=== PATIENT | male | born 1970 | race Two or more races ===

== ENCOUNTER 2016-06-16 21:31 | Inpatient (IN) | payer OTHER ==
[~2016-06-16] VITALS: Ht 157.5 cm; Wt 72.6 kg
[2016-06-16] MEDS: VANCOMYCIN 1.5 GM in IV NORMAL SALINE 500ML BAG 500 ML IV ONE (00:07)
[~2016-06-16 21:31] MED LIST: ASPI81TA2 PO; ATOR40TA PO; CARV3.12 PO; CEPH500C PO; CLOP75TA PO; FURO-68 PO; GLIM4TAB2 PO; HYDR-971 PO; INSU100I13 SQ; INSU100I17 SQ; INSU100I27 SQ; INSU100V13 SQ; Ipratropium/Albuterol Sulfate NEB; LEVO500T8 PO; LOSA100T6 PO; LOSA25TA PO; METF10002 PO; METO25TA9 PO; ONDA8TAB12 PO; OXYC-323 PO; PANT40TA3 PO; POTA20TA4 PO; SENN-37 PO; SIMV40TA3 PO; SPIR25TA PO; TICA90TA PO
[2016-06-16] MEDS ORDERED: PIP/TAZO PER PHARMACY MC PRN (23:00)
[2016-06-16] MEDS ORDERED: IV NORMAL SALINE 1000ML BAG 1,000 ML IV SCH (23:00)
[2016-06-16 23:14] LABS: BASO # 0.1 x10^3/uL (0.0-0.2); BASO % 0 % (0-3); EOS % 0 % (0-3); HEMATOCRIT 40.5 % (39.0-53.0); HEMOGLOBIN 13.3 g/dL (13.0-17.5); LYMPH % 5 % (24-48); MEAN CORPUSCULAR HEMOGLOBIN 27 pg (25-35); MEAN CORPUSCULAR HGB CONC 33 g/dL (31-37); MEAN CORPUSCULAR VOLUME 81 fL (79-100); MONO % 8 % (0-9); NEUT % 87 % (31-73); PLATELET COUNT 187 x10^3/uL (140-400); RED BLOOD COUNT 5.01 x10^6/uL (4.30-5.70); RED CELL DISTRIBUTION WIDTH 14.6 % (11.5-14.5); WHITE BLOOD COUNT 21.7 x10^3/uL (4.0-11.0)
[2016-06-16] MEDS: PIPERACILLIN/TAZOBACTAM 3.375 GM in IV NORMAL SALINE 50ML 50 ML IV SCH (23:22)
[2016-06-16 23:30] LABS: CALCIUM 8.5 mg/dL (8.5-10.1); CREATININE 1.7 mg/dL (0.7-1.3); GFR 43.6; POTASSIUM 4.7 mmol/L (3.5-5.1)
[2016-06-16 23:33] LABS: INR 1.5 (0.8-1.1); PROTHROMBIN TIME PATIENT 16.9 SEC (11.7-14.0)
[2016-06-16 23:36] LABS: ALBUMIN 2.1 g/dL (3.4-5.0); ALBUMIN/GLOBULIN RATIO 0.4 (1.0-1.7); TOTAL BILIRUBIN 1.5 mg/dL (0.2-1.0)
--- NOTE | 2016-06-16 23:48 | PHYS DOC ---
Past Medical History Past Medical History: CAD, Cancer, Diabetes-Type II, High Cholesterol, Hypertension, Other Additional Past Medical Histor: NEUROPATHY Past Surgical History: Coronary Bypass Surgery Additional Past Surgical Histo: testicularCA w/ removeofx1 testical,CABGx3, cardiacstents x 5,part amp toe Alcohol Use: None Drug Use: None Adult General Chief Complaint Chief Complaint: SKIN PROBLEM HPI HPI Patient is a 45 year old male who presents with complaint of left foot swelling. Patient states that he noticed the swelling earlier today as he felt tightness in the affected foot. Patient states that he has history of diabetic neuropathy and does not have normal feeling in his feet. Patient has history of type 2 diabetes mellitus and history of left great toe amputation which was done in January 2016. Patient was seen by his daughter who noticed that the patient had significant swelling to the foot. When she looked at the patient's foot, she stated that she saw wound to the second toe and is concerned that he is forming gangrene. Patient has had associated lightheadedness and generalized weakness. Patient denies pain. Patient's daughter brought the patient to the emergency department for fear of infection. Review of Systems Review of Systems Constitutional: Lightheadedness, chills [] Eyes: Denies change in visual acuity, redness, or eye pain [] HENT: Denies nasal congestion or sore throat [] Respiratory: Denies cough or shortness of breath [] Cardiovascular: No additional information not addressed in HPI [] GI: Denies abdominal pain, nausea, vomiting, bloody stools or diarrhea [] : Denies dysuria or hematuria [] Musculoskeletal: Left foot swelling and pain [] Integument: Denies rash or skin lesions [] Neurologic: Denies headache, focal weakness or sensory changes [] Endocrine: Denies polyuria or polydipsia [] Current Medications Current Medications Current Medications Medications (Trade) Dose Ordered Sig/Yaneli Start Time Stop Time Status Last Admin Dose Admin Piperacillin Sod/ Tazobactam Sod 1 each 1 each PRN DAILY PRN 06/16/16 23:00 Piperacillin Sod/ Tazobactam Sod/ Sodium Chloride (Zosyn/Iv Sodium Chloride 0.9% 50ml) 50 ml @ 100 mls/hr Q6HRS 06/16/16 23:00 06/16/16 23:22 100 MLS/HR Sodium Chloride (Iv Sodium Chloride 0.9% 1000ml Bag) 1,920 ml @ 480 mls/hr Q4H 06/16/16 23:00 06/17/16 02:59 DC 06/16/16 23:21 480 MLS/HR Vancomycin HCl (Vanco Per Pharmacy) 1 each PRN DAILY PRN 06/16/16 23:00 06/17/16 02:11 1 EACH Vancomycin HCl 1.5 gm/Sodium Chloride 500 ml @ 250 mls/hr 1X ONCE 06/16/16 23:30 06/17/16 01:29 DC 06/17/16 00:10 250 MLS/HR Allergies Allergies Allergies Coded Allergies Type Severity Reaction Last Updated Verified No Known Drug Allergies 10/06/15 No Physical Exam Physical Exam Constitutional: Alert, afebrile, appears ill. [] HENT: Normocephalic, atraumatic, bilateral external ears normal, oropharynx moist, no oral exudates, nose normal. [] Eyes: PERRLA, EOMI, conjunctiva normal, no discharge. [] Neck: Normal range of motion, no tenderness, supple, no stridor. [] Cardiovascular: Tachycardia, regular rhythm, no murmur [] Lungs & Thorax: Bilateral breath sounds clear to auscultation [] Abdomen: Bowel sounds normal, soft, no tenderness, no masses, no pulsatile masses. [] Skin: Warm, dry, erythema present in the left foot, no rash. [] Back: No tenderness, no CVA tenderness. [] Extremities: Moderate to severe soft tissue swelling of left foot with gangrenous changes involving the entire second toe, erythema and swelling extending to the left ankle skin sloughing over second toe. [] Neurologic: Alert and oriented X 3, normal motor function, normal sensory function, no focal deficits noted. [] Current Patient Data Vital Signs Vital Signs Date Time Temp Pulse Resp B/P Pulse Ox O2 Delivery O2 Flow Rate FiO2 06/16/16 23:15 116 17 104/80 95 Room Air 06/16/16 22:30 99.8 99.8 Lab Values Laboratory Tests Test 06/16/16 23:05 White Blood Count 21.7x10^3/uL (4.0-11.0) H Red Blood Count 5.01x10^6/uL (4.30-5.70) Hemoglobin 13.3g/dL (13.0-17.5) Hematocrit 40.5% (39.0-53.0) Mean Corpuscular Volume 81fL (79-100) Mean Corpuscular Hemoglobin 27pg (25-35) Mean Corpuscular Hemoglobin Concent 33g/dL (31-37) Red Cell Distribution Width 14.6% (11.5-14.5) H Platelet Count 187x10^3/uL (140-400) Neutrophils (%) (Auto) 87% (31-73) H Lymphocytes (%) (Auto) 5% (24-48) L Monocytes (%) (Auto) 8% (0-9) Eosinophils (%) (Auto) 0% (0-3) Basophils (%) (Auto) 0% (0-3) Neutrophils # (Auto) 18.8x10^3uL (1.8-7.7) H Lymphocytes # (Auto) 1.0x10^3/uL (1.0-4.8) Monocytes # (Auto) 1.7x10^3/uL (0.0-1.1) H Eosinophils # (Auto) 0.0x10^3/uL (0.0-0.7) Basophils # (Auto) 0.1x10^3/uL (0.0-0.2) Segmented Neutrophils % 77% (35-66) H Band Neutrophils % 13% (0-9) H Lymphocytes % 4% (24-48) L Atypical Lymphocytes % (Manual) 1% (0-0) H Monocytes % 5% (0-10) Dohle Bodies Present Platelet Estimate Adequate (ADEQUATE) Prothrombin Time 16.9SEC (11.7-14.0) H Prothrombin Time INR 1.5 (0.8-1.1) H PTT 37SEC (24-38) Sodium Level 126mmol/L (136-145) L Potassium Level 4.7mmol/L (3.5-5.1) Chloride Level 89mmol/L (98-107) L Carbon Dioxide Level 26mmol/L (21-32) Anion Gap 11 (6-14) Blood Urea Nitrogen 22mg/dL (8-26) Creatinine 1.7mg/dL (0.7-1.3) H Estimated GFR (Cockcroft-Gault) 43.6 BUN/Creatinine Ratio 13 (6-20) Glucose Level 420mg/dL (70-99) H Lactic Acid Level 2.9mmol/L (0.4-2.0) H Calcium Level 8.5mg/dL (8.5-10.1) Total Bilirubin 1.5mg/dL (0.2-1.0) H Aspartate Amino Transferase (AST) 27U/L (15-37) Alanine Aminotransferase (ALT) 20U/L (16-63) Alkaline Phosphatase 134U/L (46-116) H Total Protein 7.0g/dL (6.4-8.2) Albumin 2.1g/dL (3.4-5.0) L Albumin/Globulin Ratio 0.4 (1.0-1.7) L Procalcitonin 3.18ng/mL (0.00-0.10) H Laboratory Tests 06/16/16 23:05 Laboratory Tests 06/16/16 23:05 EKG EKG Interpreted by me: Heart rate 120, sinus tachycardia, normal intervals, leftward axis, no acute ST/T-wave abnormalities present [] Radiology/Procedures Radiology/Procedures 3 view left foot x-ray interpreted by me: Severe soft tissue swelling of left second toe, subcutaneous gas formation extending past mid foot to the ankle, no fracture [] Course & Med Decision Making Course & Med Decision Making Pertinent Labs and Imaging studies reviewed. (See chart for details) Patient was started on IV Zosyn and vancomycin after lactic acid and blood cultures were collected. The patient's x-rays show signs of severe infection due to suspected necrotizing fasciitis. At 0001, I spoke with Dr. Hairston of orthopedic surgery and informed him of the patient's current status and presence of suspected necrotizing fasciitis. He agreed with initial measures and stated that he would follow with patient in hospital for likely surgical intervention later this morning. I spoke with Dr. Shaver who accepted care of patient in hospital. Patient admitted to ICU and continued on severe sepsis protocol. Dragon Disclaimer Dragon Disclaimer This electronic medical record was generated, in whole or in part, using a voice recognition dictation system. Departure Departure Impression: Primary Impression: Severe sepsis Additional Impressions: Gas gangrene of foot Diabetes mellitus Severe protein-calorie malnutrition Renal insufficiency Disposition: ADMITTED INPATIENT Admitting Physician: Moussa, Halla Condition: GUARDED Referrals: JONE SHAVER MD (PCP) Problem Qualifiers Additional Impressions: Diabetes mellitus Diabetes mellitus type: type 2 Diabetes mellitus complication status: with hyperglycemia Diabetes mellitus buttermaker continuous churn insulin use: unspecified buttermaker continuous churn insulin use status Qualified Code: E11.65 - Type 2 diabetes mellitus with hyperglycemia LEATHA MATAMOROS MD Jun 16, 2016 23:48
[2016-06-16 23:49] LABS: PLT ESTIMATE ADEQUATE (ADEQUATE)
[2016-06-16 23:58] LABS: PROCALCITONIN 3.18 ng/mL (0.00-0.10)
[2016-06-17] VITALS (26 sets, daily range): BP systolic 79–145; BP diastolic 52–106
[2016-06-17] MEDS ORDERED: ONDANSETRON PF 4 MG/2 ML VIAL. IV PRN
[2016-06-17] MEDS ORDERED: ACETAMINOPHEN 325 MG TABLET. PO PRN
[2016-06-17] MEDS ORDERED: FENTANYL PF 100 MCG/2 ML VIAL. IV PRN
[2016-06-17] MEDS ORDERED: IV NORMAL SALINE 1000ML BAG 1,000 ML IV SCH
[2016-06-17] MEDS: VANCOMYCIN 1.5 GM in IV NORMAL SALINE 500ML BAG 500 ML IV ONE (00:10)
[2016-06-17] MEDS ORDERED: DEXTROSE 50% 25 GM / 50ML DISP.SYRIN. IV PRN (00:15)
--- NOTE | 2016-06-17 00:47 | ACF ---
Admission Forms Criteria SEVERE SEPSIS Clinical Indications for Admission to Inpatient Care (Place 'X' for any and all applicable criteria): Hospital admission is needed for appropriate care of the patient because of ANY ONE of the following: [X]I. Hemodynamic instability indicated by ANY ONE of the following(1)(2)(3)( 4)(5): []a. Vital sign abnormality not readily corrected by appropriate treatment within 12 to 24 hours indicated by ANY ONE of the following: []i) Tachycardia that persists despite appropriate treatment []ii) Hypotension that persists despite appropriate treatment []iii) Orthostatic vital sign changes that persist despite appropriate treatment [X]b. Vital sign abnormality that is severe indicated by ANY ONE of the following: [X]i. Inadequate perfusion indicated by ANY ONE of the following: [X]1) Lactic acidosis (greater than 2 mmol/L) []2) New abnormal capillary refill (greater than 3 seconds) []3) Reduced urine output []4) New altered mental status []5) Myocardial Ischemia []ii. Mean arterial pressure [A] less than 60 mm Hg []iii. Mean arterial pressure[A] less than 70 mm Hg after 30 minutes of appropriate treatment (eg, fluid resuscitation) []iv. Sustained heart rate greater than 120 beats per minute in adult []v. IV inotropic or vasopressor medication required to maintain adequate blood pressure or perfusion []II. Systemic or infectious condition causing severe symptoms or findings not responsive to emergency or observation care treatment (as appropriate) indicated by ANY ONE of the following: []a. Cardiac arrhythmias of immediate concern(1)(2)(3) []b. Severe endocrine disorder (eg, thyrotoxicosis, adrenal insufficiency)(4)(5) []c. Seizures (eg, new or recurrent)(6) []d. New-onset end organ failure or dysfunction as indicated by ANY ONE of the following: []i. Acute unexplained hypoxemia (eg, not from lung infection or chronic disease)(7)(8)(9) []ii. Acute renal failure as indicated by new onset of ANY ONE of the following(10)(11)(12)(13)(14): []1) 3-fold rise in serum creatinine from baseline []2) Serum creatinine greater than 4 mg/dL (354 micromoles/L) with acute rise greater than 0.5 mg/dL (44.2 micromoles/L) []3) Reduction of more than 75% in estimated glomerular filtration rate from baseline. []4) Estimated glomerular filtration rate less than 35 mL/min/1.73m2 ( 0.59 mL/sec/1.73m2) in child younger than 18 years. []5) Cessation of urine output indicated by ALL of the following: []A. Adequate volume status []B. Inadequate urine output as indicated by ANY ONE of the following: []a. Urine output less than 0.3 mL/kg/hr for 24 hours []b. Anuria (urine output less than 0.1 mL/kg/hr) for 12 hours []iii. Acute mental status changes(15) []iv. Acute hepatic failure (eg, plasma bilirubin greater than 4 mg/ dL (68 micromoles/L), new INR greater than 2.0)(16)(17) []e. Unmanageable nausea and vomiting(18) []f. New-onset or uncontrolled central diabetes insipidus(19)(20) []g. Clinically significant dehydration(18)(21) []h. Hypoglycemia(22) []i. Acidosis (pH less than 7.35) or alkalosis (pH greater than 7.45)( 22)(23) []j. Toxic drug level that indicates need for specific monitoring or treatment(24)(25) []k. Severe electrolyte abnormalities indicated by ALL of the following( 1)(2)(3): []i. Electrolytes and associated findings are not as expected for patient baseline or acceptable treatment effects. []ii. Severe abnormalities indicated by ANY ONE of the following: []1) Sodium less than 130 mEq/L (mmol/L) (new) []2) Sodium less than 135 mEq/L (mmol/L) with ANY ONE of the following: []A. Uncorrectable (to near normal or chronic baseline) after trial of outpatient and emergency treatment []B. Altered mental status []C. Seizures []D. Severe medical etiology requiring inpatient management (eg , heart failure, hypovolemia) []3) Sodium greater than 155 mEq/L (mmol/L) []4) Sodium greater than 150 mEq/L (mmol/L) with ANY ONE of the following: []A. Uncorrectable (to near normal or chronic baseline) with outpatient and emergency treatment []B. Altered mental status []C. Seizures []D. Severe medical etiology (eg, hypovolemia, diabetes insipidus) []5) Potassium less than 2.5 mEq/L (mmol/L) despite outpatient and emergency treatment []6) Potassium less than 3 mEq/L (mmol/L) with ANY ONE of the following : []A. Weakness []B. Cardiac abnormality (eg, arrhythmia, conduction disturbance ) []C. Cardiac ischemia []D. Ileus []E. Ongoing medical cause requiring inpatient management (eg, acute renal wasting or SIADH) []F. Other severe symptoms []7) Potassium greater than 6.5 mEq/L (mmol/L) []8) Potassium greater than 5 mEq/L (mmol/L) with ANY ONE of the following: []A. Uncorrectable (to near normal or chronic baseline) with outpatient and emergency treatment []B. Severe ECG findings[A] []C. Acute worsening of renal failure (creatinine greater than 2.5 mg/dL (221 micromoles/L) or significant elevation for age and size) []D. Severe weakness []E. Severe medical etiology (eg, hemolysis, infection, drug overdose) []9) Calcium less than 7 mg/dL (1.75 mmol/L) despite outpatient and emergency treatment(5) []10) Calcium less than 8 mg/dL (2 mmol/L) with significant symptoms or findings (eg, altered mental status, muscle spasms, seizures, breathing difficulty, cardiac abnormality (eg, arrhythmia or conduction disturbance))(5) []11) Calcium greater than 14 mg/dL (3.5 mmol/L)(5) []12) Calcium greater than 12 mg/dL (3 mmol/L) with ANY ONE of the following(5): []A. Uncorrectable (to near normal or chronic baseline) with outpatient and emergency treatment []B. Significant dehydration or hypovolemia as indicated by ALL of the following(3)(6)(7): []a. Not resolved with initial treatments []b. Clinically significant dehydration as indicated by ANY ONE of the following: [](1) Vomiting refractory to outpatient treatment (ie, precluding oral rehydration) [](2) Inability to drink [](3) Hypernatremia or other electrolyte abnormality unable to be corrected with outpatient and emergency treatment [](4) Failure to remain hydrated with outpatient therapy [](5) Reduced urine output [](6) Hypotension [](7) Serious cause for dehydration requiring acute hospitalization ( eg, bowel obstruction, increased intracranial pressure, infectious cause) [](8) Child with ANY ONE of the following(8): [](i) Severe abdominal tenderness [](ii) Adequate care not available at home [](iii) Severe dehydration (greater than 9% loss of body weight) []C. Significant symptoms or findings (eg, altered mental status , cardiac abnormality (eg, arrhythmia, conduction disturbance), malignant etiology requiring inpatient treatment) []13) Phosphorus less than 1 mg/dL (0.32 mmol/L) []14) Phosphorus less than 1.5 mg/dL (0.48 mmol/L) with ANY ONE of the following: []A. Patient unresponsive to outpatient and emergency treatment []B. Significant symptoms or findings (eg, weakness, altered mental status, breathing difficulty, seizures, rhabdomyolysis) []15) Phosphorus greater than 10 mg/dL (3.2 mmol/L) []16) Phosphorus greater than 4.5 mg/dL (1.45 mmol/L) (new) with ANY ONE of the following: []A. Severe medical etiology (eg, crush injury, acute renal failure) []B. Associated hypocalcemia with significant findings (eg, neurologic symptoms, altered mental status, muscle spasms, seizures, breathing difficulty, cardiac abnormality (eg, arrhythmia, conduction disturbance)) []16) Magnesium less than 1 mg/dL (0.41 mmol/L) []17) Magnesium less than 1.5 mg/dL (0.62 mmol/L) with ANY ONE of the following: []A. Patient unresponsive to outpatient and emergency treatment []B. Associated hypocalcemia with significant findings (eg, altered mental status, muscle spasms, seizures, breathing difficulty, cardiac abnormality (eg, arrhythmia, conduction disturbance)) []C. Associated hypokalemia (potassium less than 3 mEq/L (mmol/L )) with risk of arrhythmia []18) Magnesium greater than 4 mEq/L (2 mmol/L) []19) Magnesium greater than 2.5 mEq/L (1.25 mmol/L) with significant symptoms or findings (eg, weakness, altered mental status, cardiac abnormality (eg, arrhythmia, conduction disturbance), breathing difficulty, severe medical etiology (eg, renal failure, hypovolemia)) []20) Uric acid greater than 20 mg/dL (1190 micromoles/L)(9) []21) Uric acid greater than 8 mg/dL (476 micromoles/L) with significant symptoms or findings of tumor lysis syndrome (eg, creatinine greater than 1.5 times upper limit of normal, cardiac abnormality (eg , arrhythmia, conduction disturbance), seizure)(9) []III. High fever or other high-risk infection situation as indicated by ANY ONE of the following(26)(27)(28): []a. Outpatient and observation care antimicrobial treatment unavailable, not effective, or not appropriate []b. Documented bacteremia []c. Temperature greater than 104.9 degrees F (40.5 degrees C) (oral) []d. Temperature greater than 103.1 degrees F (39.5 degrees C) (oral) or less than 96.8 degrees F (36 degrees C) (rectal) that does not respond to emergency treatment and observation care []IV. High-risk febrile neutropenia[A] as indicated by ANY ONE of the following(29)(30)(31)(32): []a. Profound neutropenia[B] anticipated to extend for more than 7 days []b. Hemodynamic instability []c. Hypoxemia []d. Tachypnea []e. Altered mental status []f. New-onset abdominal pain []g. New-onset vomiting or diarrhea []h. Oral or gastrointestinal mucositis that interferes with swallowing or causes severe diarrhea []i. Focal infection (eg, cellulitis, pneumonia, central line or catheter infection, perirectal abscess) []j. Renal insufficiency (eg, GFR of less than 30 mL/min/1.73m2 (0.5 mL/sec /1.73m2)). []k. Severe liver dysfunction (transaminase levels greater than 5 times normal) []l. Platelet count less than 50,000/mm3 (50 x109/L)(33) []m. Leukemia or lymphoma induction therapy []n. Leukemia not in complete remission or with evidence of disease progression []o. Bone marrow transplant patient []p. Alemtuzumab being used for therapy []q. [employer] Association for Supportive Care in Cancer (MASCC) Risk Index score of less than 21[C](33)(35). []V. Isolation required (eg, tuberculosis that requires isolation, Ebola infection)[D](36)(37)(38)(39)(40) []. Gangrene that requires treatment beyond emergency or observation level care(41)(42) []VII. Antitoxin administration and ongoing observation required (eg, tetanus, botulism)(43)(44) []. Suspected infection with rapid progression or severe symptoms as indicated by ANY ONE of the following(45): []a. Streptococcal or staphylococcal toxic shock(46) []b. Diphtheria(47) []c. Hantavirus(48) []d. Severe acute respiratory syndrome(8)(49) []e. Anthrax(50) []f. Ebola[D](36)(37)(38) []g. Necrotizing soft tissue infection(41)(42) []h. Plague(50) []i. Other suspected infection that requires care beyond emergency or observation level care []VII. Severe adverse drug or systemic toxin reaction as indicated by ANY ONE of the following(24): []a. Serotonin syndrome(51)(52) []b. Neuroleptic malignant syndrome(51)(52) []c. Cholinergic syndrome with severe symptoms (eg, bronchorrhea, weakness , mental status changes, seizures)(53) []d. Anticholinergic syndrome []e. Sympathetic syndrome with severe symptoms (eg, seizures, mental status changes, cardiac dysrhythmias) []f. Other severe adverse drug or systemic toxin reaction that remains after emergency or observation level care (as appropriate) []VIII. Allergic reaction with severe symptoms (not responsive to emergency or observation care treatment as appropriate), including ANY ONE of the following(54): []a. Airway edema (pharyngeal, epiglottic, or laryngeal edema) []b. Stridor []c. Respiratory failure []d. Bronchospasm []e. Hypotension []IX. Environmental emergency (not responsive to emergency or observation care treatment as appropriate) as indicated by ANY ONE of the following(55)(56): []a. Hyperthermia []b. Heat stroke []c. Heat exhaustion []d. Hypothermia (temperature less than 95 degrees F (35 degrees C) rectal) (57) []e. Electrocution(58) []X. Complications of transplanted organ (ie, not covered elsewhere)[E] indicated by ANY ONE of the following(59): []a. Acute graft rejection (or graft vs. host disease)[F] requiring inpatient management (eg, intravenous immunosuppression)(60)(61)(62)( 63) []b. Acute failure of transplanted organ necessitating inpatient care (eg, cannot be managed in other setting) []c. Infection requiring inpatient management (eg, Hemodynamic instability, need for intravenous antimicrobial treatment)(64)(65) []d. Other complication of transplanted organ requiring inpatient management []XI. Systemic or Infectious Condition condition, symptom, or finding for which emergency and observation care have failed or are not considered appropriate. See General Criteria: Observation Care, General Admission Criteria or Pediatric General Admission Criteria guideline as appropriate. (Contents from SEVERE SEPSIS and SYSTEMIC OR INFECTIOUS CONDITION clinical indications for admission to inpatient care have been integrated in this form) The original [facility] content created by [facility] has been revised. The portions of the content which have been revised are identified through the use of italic text or in bold and [facility] has neither reviewed nor approved the modified material. All other unmodified content is copyright [facility]. Please see references footnoted in the original [facility] edition 2016 Admission Criteria Met?: Yes ALTA INGRAM Jun 17, 2016 00:47
[2016-06-17] MEDS ORDERED: NOREPINEPHRINE VIAL 8 MG in IV NORMAL SALINE 250ML 250 ML IV PRN (01:30)
[2016-06-17] MEDS ORDERED: INSULIN ASPART 300 UNITS/3 ML INSULN.PEN SQ ONE (02:00)
[2016-06-17] MEDS: VANCOMYCIN PER PHARMACY MC PRN ×2 (02:11→09:21)
[2016-06-17 03:36] LABS: CALCIUM 7.7 mg/dL (8.5-10.1); CREATININE 1.7 mg/dL (0.7-1.3); GFR 43.6; POTASSIUM 3.8 mmol/L (3.5-5.1)
[2016-06-17 03:54] LABS: BASO # 0.1 x10^3/uL (0.0-0.2); BASO % 0 % (0-3); EOS % 0 % (0-3); HEMATOCRIT 36.5 % (39.0-53.0); HEMOGLOBIN 11.7 g/dL (13.0-17.5); LYMPH # 1.5 x10^3/uL (1.0-4.8); LYMPH % 8 % (24-48); MEAN CORPUSCULAR HEMOGLOBIN 26 pg (25-35); MEAN CORPUSCULAR HGB CONC 32 g/dL (31-37); MEAN CORPUSCULAR VOLUME 81 fL (79-100); MONO % 10 % (0-9); NEUT % 82 % (31-73); PLATELET COUNT 161 x10^3/uL (140-400); RED CELL DISTRIBUTION WIDTH 14.4 % (11.5-14.5); WHITE BLOOD COUNT 18.8 x10^3/uL (4.0-11.0)
[2016-06-17] MEDS: PIPERACILLIN/TAZOBACTAM 3.375 GM in IV NORMAL SALINE 50ML 50 ML IV SCH ×3 (05:52→17:50)
--- NOTE | 2016-06-17 06:32 | EKG ---
[facility] [address] [place] [address] Test Date: 2016-06-16 Test Time: 22:38:52 Pat Name: TAMERA MCGOWAN Department: Room: 108 1 Gender: M Bilingual Interpreter: : 1970 Requested By: LEATHA MATAMOROS Order Number: [id number] Reading MD: Eboni Diehl Measurements Intervals [place] Rate: 120 P: 38 GA: 144 QRS: -16 QRSD: 86 T: 7 QT: 308 QTc: 440 Interpretive Statements SINUS TACHYCARDIA LEFT ATRIAL ABNORMALITY LEFTWARD AXIS QRS(T) CONTOUR ABNORMALITY CONSISTENT WITH INFERIOR INFARCT PROBABLY OLD Electronically Signed On 06-18-2016 0:44:46 GAMB CUTTER by Eboni Diehl
[2016-06-17] MEDS ORDERED: ONDANSETRON PF 4 MG/2 ML VIAL. ONE (07:18)
[2016-06-17] MEDS ORDERED: LIDOCAINE 2% 100 MG/5 ML DISP.SYRIN. ONE (07:18)
[2016-06-17] MEDS ORDERED: PROPOFOL 20 ML IV ONE (07:18)
--- NOTE | 2016-06-17 07:32 | PDOC ---
Infectious Disease Note ROS ROS GEN: Denies fevers, chills, sweats HEENT: Denies blurred vision, sore throat CV: Denies chest pain RESP: Denies shortness of air, cough GI: Denies n/v/d NEURO: Denies confusion, dizziness MSK: Denies weakness, joint pain/swelling Vital Sign Vital Signs Vital Signs Date Time Temp Pulse Resp B/P Pulse Ox O2 Delivery O2 Flow Rate FiO2 06/17/16 06:00 116 16 90/63 98 Room Air 06/17/16 04:00 99.2 99.2 Physical Exam PHYSICAL EXAM GENERAL: NAD, Alert HEENT: PERRL, OC/OP NECK: Supple, no JVD, no LN LUNGS: Clear HEART: S1S2, no gallop, no murmur ABD: Soft, NT, no organomegaly, no rebound EXT: No edema, no cyanosis REAL TIME ANALYST: Alert, oriented x 3, no focal neurologic deficit SKIN: No rash IV: ok Labs Lab Laboratory Tests Test 06/16/16 23:05 06/17/16 01:03 06/17/16 03:15 06/17/16 07:02 White Blood Count 21.7x10^3/uL (4.0-11.0) 18.8x10^3/uL (4.0-11.0) Red Blood Count 5.01x10^6/uL (4.30-5.70) 4.50x10^6/uL (4.30-5.70) Hemoglobin 13.3g/dL (13.0-17.5) 11.7g/dL (13.0-17.5) Hematocrit 40.5% (39.0-53.0) 36.5% (39.0-53.0) Mean Corpuscular Volume 81fL (79-100) 81fL (79-100) Mean Corpuscular Hemoglobin 27pg (25-35) 26pg (25-35) Mean Corpuscular Hemoglobin Concent 33g/dL (31-37) 32g/dL (31-37) Red Cell Distribution Width 14.6% (11.5-14.5) 14.4% (11.5-14.5) Platelet Count 187x10^3/uL (140-400) 161x10^3/uL (140-400) Neutrophils (%) (Auto) 87% (31-73) 82% (31-73) Lymphocytes (%) (Auto) 5% (24-48) 8% (24-48) Monocytes (%) (Auto) 8% (0-9) 10% (0-9) Eosinophils (%) (Auto) 0% (0-3) 0% (0-3) Basophils (%) (Auto) 0% (0-3) 0% (0-3) Neutrophils # (Auto) 18.8x10^3uL (1.8-7.7) 15.4x10^3uL (1.8-7.7) Lymphocytes # (Auto) 1.0x10^3/uL (1.0-4.8) 1.5x10^3/uL (1.0-4.8) Monocytes # (Auto) 1.7x10^3/uL (0.0-1.1) 1.8x10^3/uL (0.0-1.1) Eosinophils # (Auto) 0.0x10^3/uL (0.0-0.7) 0.0x10^3/uL (0.0-0.7) Basophils # (Auto) 0.1x10^3/uL (0.0-0.2) 0.1x10^3/uL (0.0-0.2) Segmented Neutrophils % 77% (35-66) Band Neutrophils % 13% (0-9) Lymphocytes % 4% (24-48) Atypical Lymphocytes % (Manual) 1% (0-0) Monocytes % 5% (0-10) Dohle Bodies Present Platelet Estimate Adequate (ADEQUATE) Prothrombin Time 16.9SEC (11.7-14.0) Prothromb Time International Ratio 1.5 (0.8-1.1) Activated Partial Thromboplast Time 37SEC (24-38) Sodium Level 126mmol/L (136-145) 128mmol/L (136-145) Potassium Level 4.7mmol/L (3.5-5.1) 3.8mmol/L (3.5-5.1) Chloride Level 89mmol/L (98-107) 95mmol/L (98-107) Carbon Dioxide Level 26mmol/L (21-32) 24mmol/L (21-32) Anion Gap 11 (6-14) 9 (6-14) Blood Urea Nitrogen 22mg/dL (8-26) 22mg/dL (8-26) Creatinine 1.7mg/dL (0.7-1.3) 1.7mg/dL (0.7-1.3) Estimated GFR (Cockcroft-Gault) 43.6 43.6 BUN/Creatinine Ratio 13 (6-20) Glucose Level 420mg/dL (70-99) 303mg/dL (70-99) Lactic Acid Level 2.9mmol/L (0.4-2.0) 2.3mmol/L (0.4-2.0) Calcium Level 8.5mg/dL (8.5-10.1) 7.7mg/dL (8.5-10.1) Total Bilirubin 1.5mg/dL (0.2-1.0) Aspartate Amino Transf (AST/SGOT) 27U/L (15-37) Alanine Aminotransferase (ALT/SGPT) 20U/L (16-63) Alkaline Phosphatase 134U/L (46-116) Total Protein 7.0g/dL (6.4-8.2) Albumin 2.1g/dL (3.4-5.0) Albumin/Globulin Ratio 0.4 (1.0-1.7) Procalcitonin 3.18ng/mL (0.00-0.10) Glucose (Fingerstick) 411mg/dL (70-99) 243mg/dL (70-99) Objective Assessment Sepsis - POA Gangrene of Left 2nd toe CLARISSA Leukocytosis H/o Group B/Ecoli Plan Plan of Care Cont Vanc and Zosyn for now Add Micafungin. Add Zyvox to help with protein and toxic decrease F/u labs in am (CBC,CMP,sed rate, Lactic acid, CPK) and cults Await surgery CXR - with h/o fall D/w Dr. Hairston 35 mins CC time Thank you # [id number] MARIO VALLES MD Jun 17, 2016 07:32
[2016-06-17] MEDS ORDERED: PHENYLEPHRINE in 0.9% NACL PF 1 MG/10 ML DISP.SYRIN. IV ONE (07:35)
[2016-06-17] MEDS ORDERED: EPHEDRINE PF IN SALINE 50 MG/5 ML DISP.SYRIN. IV ONE (07:40)
--- NOTE | 2016-06-17 07:49 | RAD ---
Indication necrotic second toe. AP oblique and lateral views of the left foot were obtained. Note is made of a previous examination 02/09/2016. The patient is now status post amputation through the midportion of the proximal phalanx of the large toe. There is bony destruction and loss of cortical margins associated with the base of the proximal phalanx of the second digit with possible similar findings involving the proximal phalanx of the third digit. There is some fragmentation of bone at the base of the proximal phalanx of the second digit. There is, additionally, partial bony destruction associated with the DIP joint of the small toe. These findings are compatible with osteomyelitis. There is, in addition, extensive subcutaneous emphysema in the soft tissues compatible with a necrotizing infectious process. IMPRESSION: Probable bony destruction at multiple levels suggesting osteomyelitis. Extensive subcutaneous air compatible with an associated necrotizing infectious process.
[2016-06-17] MEDS ORDERED: CARVEDILOL 3.125 MG TABLET PO SCH (08:00)
--- NOTE | 2016-06-17 08:01 | PDOC ---
BRIEF OPERATIVE NOTE Date: Jun 17, 2016 Pre-Op Diagnosis left foot infection Post-Op Diagnosis same Procedure Performed left second ray amputation Surgeon Marika Anesthesia Type: General Blood Loss 15cc Specimens Obtained cultures intraop Findings above Complications none PRIYA SIMPSON MD Jun 17, 2016 08:01
[2016-06-17] MEDS: MICAFUNGIN 100 MG in IV DEXTROSE 5% 100 ML IV SCH (08:45)
[2016-06-17] MEDS ORDERED: METOPROLOL SUCC 24HR ER 25 MG TAB.ER.24H. PO SCH (09:00)
[2016-06-17] MEDS ORDERED: FUROSEMIDE 40 MG TABLET PO SCH (09:00)
--- NOTE | 2016-06-17 09:29 | PDOC ---
OBJECTIVE Vital Signs Vital Signs Date Time Temp Pulse Resp B/P Pulse Ox O2 Delivery O2 Flow Rate FiO2 06/17/16 08:30 98.3 101 14 71/48 95 Nasal Cannula 2 98.3 06/17/16 08:15 99 16 86/50 94 Room Air 06/17/16 08:00 98.6 107 24 86/65 100 Simple Mask 10 98.6 06/17/16 06:00 116 16 90/63 98 Room Air 06/17/16 05:00 114 25 85/58 94 Room Air 06/17/16 04:00 99.2 114 20 100/72 94 Room Air 99.2 06/17/16 03:53 Room Air 06/17/16 03:00 114 16 90/65 93 Room Air 06/17/16 02:00 112 14 84/62 92 Room Air 06/17/16 01:52 Room Air 06/17/16 01:45 12 97/72 94 Room Air 06/17/16 01:30 114 14 79/52 92 Room Air 06/17/16 01:15 112 20 85/62 94 Room Air 06/17/16 01:00 112 18 101/81 95 Room Air 06/17/16 00:45 98.0 112 20 113/68 96 Room Air 98.0 06/17/16 00:15 112 21 100/81 97 Room Air 06/16/16 23:45 114 22 100/75 96 Room Air 06/16/16 23:15 116 17 104/80 95 Room Air 06/16/16 22:30 99.8 116 17 121/87 96 Room Air 99.8 I & O Intake and Output 06/17/16 07:00 Intake Total 3596 ml Output Total 600 ml Balance 2996 ml Intake Oral 0 ml IV Total 3596 ml Output Urine Total 600 ml ASSESSMENT/PLAN Assessment/Plan 250437 H&P dictated Problems: COMMENT Lab Laboratory Tests Test 06/16/16 23:05 06/17/16 01:03 06/17/16 03:15 06/17/16 07:02 White Blood Count 21.7x10^3/uL (4.0-11.0) 18.8x10^3/uL (4.0-11.0) Red Blood Count 5.01x10^6/uL (4.30-5.70) 4.50x10^6/uL (4.30-5.70) Hemoglobin 13.3g/dL (13.0-17.5) 11.7g/dL (13.0-17.5) Hematocrit 40.5% (39.0-53.0) 36.5% (39.0-53.0) Mean Corpuscular Volume 81fL (79-100) 81fL (79-100) Mean Corpuscular Hemoglobin 27pg (25-35) 26pg (25-35) Mean Corpuscular Hemoglobin Concent 33g/dL (31-37) 32g/dL (31-37) Red Cell Distribution Width 14.6% (11.5-14.5) 14.4% (11.5-14.5) Platelet Count 187x10^3/uL (140-400) 161x10^3/uL (140-400) Neutrophils (%) (Auto) 87% (31-73) 82% (31-73) Lymphocytes (%) (Auto) 5% (24-48) 8% (24-48) Monocytes (%) (Auto) 8% (0-9) 10% (0-9) Eosinophils (%) (Auto) 0% (0-3) 0% (0-3) Basophils (%) (Auto) 0% (0-3) 0% (0-3) Neutrophils # (Auto) 18.8x10^3uL (1.8-7.7) 15.4x10^3uL (1.8-7.7) Lymphocytes # (Auto) 1.0x10^3/uL (1.0-4.8) 1.5x10^3/uL (1.0-4.8) Monocytes # (Auto) 1.7x10^3/uL (0.0-1.1) 1.8x10^3/uL (0.0-1.1) Eosinophils # (Auto) 0.0x10^3/uL (0.0-0.7) 0.0x10^3/uL (0.0-0.7) Basophils # (Auto) 0.1x10^3/uL (0.0-0.2) 0.1x10^3/uL (0.0-0.2) Segmented Neutrophils % 77% (35-66) Band Neutrophils % 13% (0-9) Lymphocytes % 4% (24-48) Atypical Lymphocytes % (Manual) 1% (0-0) Monocytes % 5% (0-10) Dohle Bodies Present Platelet Estimate Adequate (ADEQUATE) Prothrombin Time 16.9SEC (11.7-14.0) Prothromb Time International Ratio 1.5 (0.8-1.1) Activated Partial Thromboplast Time 37SEC (24-38) Sodium Level 126mmol/L (136-145) 128mmol/L (136-145) Potassium Level 4.7mmol/L (3.5-5.1) 3.8mmol/L (3.5-5.1) Chloride Level 89mmol/L (98-107) 95mmol/L (98-107) Carbon Dioxide Level 26mmol/L (21-32) 24mmol/L (21-32) Anion Gap 11 (6-14) 9 (6-14) Blood Urea Nitrogen 22mg/dL (8-26) 22mg/dL (8-26) Creatinine 1.7mg/dL (0.7-1.3) 1.7mg/dL (0.7-1.3) Estimated GFR (Cockcroft-Gault) 43.6 43.6 BUN/Creatinine Ratio 13 (6-20) Glucose Level 420mg/dL (70-99) 303mg/dL (70-99) Lactic Acid Level 2.9mmol/L (0.4-2.0) 2.3mmol/L (0.4-2.0) Calcium Level 8.5mg/dL (8.5-10.1) 7.7mg/dL (8.5-10.1) Total Bilirubin 1.5mg/dL (0.2-1.0) Aspartate Amino Transf (AST/SGOT) 27U/L (15-37) Alanine Aminotransferase (ALT/SGPT) 20U/L (16-63) Alkaline Phosphatase 134U/L (46-116) Total Protein 7.0g/dL (6.4-8.2) Albumin 2.1g/dL (3.4-5.0) Albumin/Globulin Ratio 0.4 (1.0-1.7) Procalcitonin 3.18ng/mL (0.00-0.10) Glucose (Fingerstick) 411mg/dL (70-99) 243mg/dL (70-99) Creatine Kinase 34U/L (39-308) JONE SHAVER MD Jun 17, 2016 09:29
[2016-06-17] MEDS: INSULIN ASPART 300 UNITS/3 ML INSULN.PEN SQ SCH ×3 (10:11→17:55)
[2016-06-17] MEDS: CLOPIDOGREL BISULFATE 75 MG TABLET PO SCH (13:48)
[2016-06-17] MEDS: ASPIRIN 81 MG TAB.CHEW PO SCH (13:48)
--- NOTE | 2016-06-17 19:20 | PREOP HP ---
DATE OF SERVICE: 06/17/2016 HISTORY OF PRESENT ILLNESS: The patient is a 45-year-old gentleman, who is known to be noncompliant and recently had amputation on his left big toe, presents to the Emergency Room complaining of left foot swelling. He had his second toe next to the big toe blue color, gangrenous, with erythema, and very inflamed. He does have diabetic neuropathy. Apparently, he stopped taking all his diabetes medications about a week ago. Upon his arrival to the Emergency Room, he was obviously very ill, with ____ tension and tachycardia. He has been very weak, lightheaded, and not feeling good. PAST MEDICAL HISTORY: Significant for diabetes mellitus insulin requiring, coronary artery disease, coronary artery bypass graft, ischemic cardiomyopathy with ejection fraction of 16%. He does have peripheral neuropathy. He has hyperlipidemia, hypertension, gastroesophageal reflux disease. He has had testicular cancer in 1989. He does have osteoarthritis and previous history of amputation of the left toe. FAMILY HISTORY: Positive for diabetes mellitus and coronary artery disease. REVIEW OF SYSTEMS: CONSTITUTIONAL: He is lightheaded and having chills. EYES: He has some blurry vision. Denies redness in the eyes. HEENT: Denies nasal congestion or sore throat. RESPIRATORY: Denies cough. He is mildly short of breath. CARDIOVASCULAR: No chest pain. GASTROINTESTINAL: No abdominal pain. GENITOURINARY: Denies dysuria. MUSCULOSKELETAL: He has swelling and pain in the left foot. NEUROLOGIC: Denies focal weakness or sensory changes. PHYSICAL EXAMINATION: GENERAL: He is looking acutely sick. HEENT: Normocephalic, atraumatic. Eyes with normal conjunctivae and no discharge. NECK: Supple. HEART: Tachycardic, regular. LUNGS: Bilateral breath sounds are clear. ABDOMEN: Soft and nontender. SKIN: Warm and dry. He does have left foot erythema with blue coloration of his second toe and gangrenous-looking toe. EXTREMITIES: Otherwise without edema. NEUROLOGIC: Exam without any deficit. IMPRESSION AND PLAN: 1. Sepsis due to ulceration and gangrene of the left foot and the second toe. 2. Diabetes mellitus, insulin requiring, out of control due to noncompliance. 3. Severe protein calorie malnutrition. 4. Renal insufficiency, acute on chronic. 5. Coronary artery disease and previous history of coronary artery bypass graft, cardiomyopathy. 6. Hypertension and hyperlipidemia. 7. Hyponatremia. 8. Leukocytosis secondary to #1. JONE SHAVER MD DR: PORSHA/mingo JOB#: [id number] / [id number]
--- NOTE | 2016-06-17 20:58 | CONS ---
DATE OF CONSULTATION: 06/17/2016 REQUESTING PHYSICIAN: Dr. Christine Correa. REASON FOR CONSULTATION: Left foot infection. HISTORY OF PRESENT ILLNESS: The patient is a 45-year-old male, with multiple serious medical problems, complaining of left foot swelling that has off and on been going on for several weeks, but today he felt more tightness and pain in the affected foot as well as just overall feeling not well, lethargic, etc. He has a longstanding history of poorly-controlled diabetes and has severe diabetic neuropathy that decreases the feeling in his foot. He had undergone a previous left great toe amputation in January and actually his family noticed that he had foot swelling and noted darkness of the second toe and brought him in for evaluation. He was admitted last night about midnight to the Intensive Care Unit and his condition has improved a little bit with some hydration. Really denies any pain currently. PAST MEDICAL HISTORY: Significant for type 2 diabetes poorly controlled, history of heart disease, testicular cancer, hypertension, diabetic neuropathy. PAST SURGICAL HISTORY: Significant for coronary artery bypass surgery, removal of a testicle, coronary artery bypass grafting, placement of cardiac stents, and a left great toe amputation. FAMILY HISTORY: Noncontributory. MEDICATIONS: List was reviewed. ALLERGIES: He has no known drug allergies. SOCIAL HISTORY: Denies smoking, alcohol, or drug use. REVIEW OF SYSTEMS: Has had lightheadedness and chills, left foot swelling, redness, overall malaise. Denies any focal weakness, sensory changes, nausea, vomiting, chest pain, shortness of breath, radiating pain in the extremities, more frequent urination, change in bowel or bladder habits whatsoever. Skin lesions are significant for the left second toe becoming black. PHYSICAL EXAMINATION: CURRENT VITAL SIGNS: Pulse 116, respirations 16, blood pressure 90/63, 98% saturation on room air. Last temp was at 4:00 a.m., which was 99.2. EXTREMITIES: Examination of the left foot reveals a gangrenous left second toe and palpable fluctuance towards the second metatarsal head from the distal foot, with odorous drainage. The proximal foot from the mid foot ____ appears to be overall intact with some skin lesions, but certainly no tracking redness. He is able to flex and extend both ankles. The left foot is very swollen overall in the forefoot. He has a well-healed previous amputation of the left great toe, severe neuropathy in a stocking distribution that very significantly limits his sensation, but distal pulses are palpable and the foot is warm. MUSCULOSKELETAL: He has good hip, knee, and ankle range of motion, alignment, stability bilaterally, and good shoulder, elbow and wrist motion bilaterally with no evidence of large joint swelling. ASSESSMENT: Left foot infection with left second toe gangrene; poorly-controlled diabetes with neuropathy; sepsis, improving. TREATMENT PLAN: I went over with him that he is obviously very sick, has multiple medical problems, I want to urgently take him to Surgery to help drain any infection that is present. He will likely need some long-term wound care and leave the wound open, perhaps with the use of a wound VAC or other wound care, possibility of additional procedures being necessary as the infection appears quite serious; and in the interim his medical condition has improved slightly with the administration of antibiotics and clearing of some of his lactic acidosis and normalization relatively of some of his blood sugars. He remains a bit hypotensive but medically stable, and again are taking him urgently to Surgery. Informed consent was given after having reviewed the risks, benefits, postoperative course of the procedure. PRIYA SIMPSON MD DR: FREDI/mingo JOB#: [id number] / [id number]
[2016-06-17] MEDS ORDERED: INSULIN DETEMIR 300 UNITS/3 ML INSULN.PEN. SQ SCH (21:00)
[2016-06-17] MEDS: ATORVASTATIN CALCIUM 40 MG TABLET. PO SCH (21:34)
[2016-06-17] MEDS: INSULIN DETEMIR 300 UNITS/3 ML INSULN.PEN. SQ SCH (21:36)
[2016-06-17] MEDS: VANCOMYCIN 1 GM in IV NORMAL SALINE 250ML 250 ML IV SCH (22:26)
--- NOTE | 2016-06-17 23:00 | OP ---
DATE OF SURGERY: 06/17/2016 PREOPERATIVE DIAGNOSIS: Severe left foot infection with gangrenous left second toe. POSTOPERATIVE DIAGNOSIS: Severe left foot infection with gangrenous left second toe. PROCEDURE: Left partial ray amputation of second ray and extensive irrigation and debridement of left foot infection. SURGEON: Aly Hairston M.D. ANESTHESIA: General. ESTIMATED BLOOD LOSS: 25 mL. COMPLICATIONS: None. OPERATIVE INDICATIONS: The patient is a 45-year-old male with poorly controlled diabetes mellitus and diabetic neuropathy, who had noticed off and on foot swelling, much more severe in the past week. Due to swelling, odor and appearance of this gangrenous toe, was brought into the hospital by his daughter and underwent admission with a picture, which improved overnight somewhat with antibiotics and fluid resuscitation, but still has had an elevated white count and has been having fevers and definitely has a left foot abscess with necrosis of this left second toe. I had gone over with him and his family the necessity of toe amputation to allow this area to drain and minimize the chance of spread up to his foot or into his body and the fact that I would attempt to remove any tissue to the extent possible, he may need additional procedures. Extensive wound care may end up with additional loss of tissue or even the leg itself depending on the seriousness of the infection if it does not clear, but ____ minimum would be facing extensive wound care following the procedure and he really has extensive medical factors complicating his healing and risk factor for infection as well. All his questions were answered. Consent was obtained and he agrees to proceed with operative evaluation and treatment. OPERATIVE TECHNIQUE: The patient was identified, procedure verified, patient placed in the supine position on operating table. After adequate amounts of general endotracheal anesthesia were administered, the left foot was prepped and draped in standard sterile fashion. A thigh tourniquet was placed, but not inflated. After timeout was performed, the patient and procedure identified and verified. The clearly necrotic second toe was excised and longitudinal incisions were made over the second ray as well as infection had clearly tracked up proximally along the second ray and extensive foul smelling necrotic tissue was noted and was removed sharply including the distal aspect of the second metatarsal, which was removed with a bone cutter along with the entire second toe. Further debridement of skin and deep tissue including muscle, fascia, and bone were carried out. Thorough irrigation carried out with normal saline solution. Additional sharp removal of tissue was noted back ____ area was debrided back to any area of proximal tracking. After further irrigation carried out with normal saline solution, the area was packed with 1-inch iodoform gauze, sterile dressings were applied. The patient was returned to the Intensive Care Unit in stable condition having tolerated the procedure well. ALY HAIRSTON MD DR: FREDI/mingo JOB#: [id number] / [id number]
--- NOTE | 2016-06-17 23:51 | CONS ---
DATE OF CONSULTATION: 06/17/2016 PATIENT'S ROOM: ICU 8. REQUESTING PHYSICIAN: . REASON FOR CONSULTATION: Severe sepsis and left foot gangrene. HISTORY OF PRESENT ILLNESS: The patient is a pleasant 45-year-old gentleman with a history of diabetes for greater than 15 years. Also, has a history of group B great toe infection resulting in amputation, and he has had a previous E. coli there as well. He states he was in his normal state of health about a week or so ago, he was walking down the stairs and he got wobbly. Denies any fevers or chills or feeling ill at that time, but he slipped down the stairs, he grabbed the hand rail and felt a little bit of a pop in his left chest area. He was wearing shoes at that time. Denies any complications, but states that he had to stay in bed for close to a week. He then states yesterday he noticed his foot began to develop some discomfort which is unusual for him given his neuropathy. He denies any trauma again to the area, but it began to swell and become more red. Apparently, his daughter noticed he had significant swelling and saw that there was a wound around the second toe and he was brought to [facility] on the . On arrival, he had a white count of 21.7 with 13% bands. Creatinine was 1.7. It was fairly clear that he had developed some rather gangrene of his left second toe. X-ray in the Emergency Room shows clear gas. There was no report of gases visualized easily on the plain film. Again, he has not been having any fevers or chills or sweats. No headache, sinus issues, sore throat or cough or chest pain. No nausea, vomiting, diarrhea. No dysuria, frequency, urgency. Denies any rashes. He has been evaluated by Dr. Hairston. I did discuss the case with Dr. Hairston who plans to take him urgently to surgery. Currently, he is fairly comfortable. PAST MEDICAL HISTORY: Again is positive for previous toe infection with group B strep as well as E. coli, has history of diabetes, coronary artery disease, previous myocardial infarction, neuropathy, hypercholesterolemia, hypertension, history of testicular cancer, history of urinary tract infections. PAST SURGICAL HISTORY: Positive for left great toe amputation, removal of one of those testicles, 5 cardiac stents, cardiac bypass x 3. REVIEW OF SYSTEMS: Otherwise negative. ALLERGIES: No known drug allergies. SOCIAL HISTORY: No recent tobacco or alcohol. FAMILY HISTORY: Positive for diabetes and hypertension. CURRENT MEDICATIONS: Include vancomycin, Zosyn; Levophed, although it has not been started; aspirin, Lipitor, Plavix, Lasix, NovoLog insulin, metoprolol. Other meds available have been reviewed in the chart. PHYSICAL EXAMINATION: VITAL SIGNS: T-max 99.8 at the time of presentation, currently 99.2; pulse 116, respiratory rate 16, blood pressure currently 90/63, but it did drop down into the 70s/50s; satting 98% on room air. CONSTITUTIONAL: He is pleasant and cooperative. He is in no acute distress. He is alert. HEENT: Pupils are equal and reactive with normal conjunctivae. Oral cavity and oropharynx: He wears dentures, although dentures were out. His oral cavity, oropharynx was dry, but clear. NECK: Supple with good range of motion. No JVD. LUNGS: Clear to auscultation. HEART: S1, S2. ABDOMEN: Soft, nontender, nondistended, with positive bowel sounds. EXTREMITIES: Without clubbing, cyanosis. His left second toe has obvious signs of wet gangrene. There is odor associated. The foot has 2+ edema. There is erythema. There is also a blood-filled blister at the base of the second toe and the foot is warm. SKIN: Otherwise without signs of rash and warm to touch. NEUROLOGIC: Nonfocal. Moves all extremities. He did have some onychomycosis. PSYCHIATRIC: Affect was appropriate. LABORATORY VALUES: White count this morning 18.8, hemoglobin 11.7, platelets 161, and 82 segs, 8 lymphs. Creatinine remains 1.7, glucose of 303. Lactic acid was 2.9. X-ray reviewed in history of present illness. IMPRESSION: 1. Sepsis present on admission. 2. Gangrene, left second toe. 3. Acute kidney injury. 4. Leukocytosis. 5. History of group B streptococcus, Escherichia coli. RECOMMENDATIONS: For now, continue vancomycin and Zosyn. We will add micafungin for his tinea. We will also add Zyvox to help with protein and toxin decrease. We will follow up on labs in the morning, CBC, CMP, sed rate, lactic acid and a CPK as well as cultures. Await surgery and we will obtain a chest x-ray with a history of fall. This was discussed with Dr. Hairston. Thank you for allowing us to participate in the patient's care. Should you have further questions, please do not hesitate to contact me. I spent 35 minutes of critical care time. MARIO VALLES MD DR: KYRIE/mingo JOB#: [id number] / [id number]
[2016-06-18] VITALS (29 sets, daily range): BP systolic 97–176; BP diastolic 39–114
[2016-06-18] MEDS ORDERED: FENTANYL PF 100 MCG/2 ML VIAL. IV PRN (04:45)
[2016-06-18 05:27] LABS: BASO # 0.1 x10^3/uL (0.0-0.2); BASO % 0 % (0-3); EOS % 0 % (0-3); HEMATOCRIT 40.4 % (39.0-53.0); HEMOGLOBIN 12.9 g/dL (13.0-17.5); LYMPH # 1.9 x10^3/uL (1.0-4.8); LYMPH % 9 % (24-48); MEAN CORPUSCULAR HEMOGLOBIN 26 pg (25-35); MEAN CORPUSCULAR HGB CONC 32 g/dL (31-37); MEAN CORPUSCULAR VOLUME 82 fL (79-100); MONO % 8 % (0-9); NEUT % 83 % (31-73); PLATELET COUNT 226 x10^3/uL (140-400); RED BLOOD COUNT 4.91 x10^6/uL (4.30-5.70); RED CELL DISTRIBUTION WIDTH 15.1 % (11.5-14.5); WHITE BLOOD COUNT 21.7 x10^3/uL (4.0-11.0)
[2016-06-18 05:48] LABS: ALBUMIN 1.5 g/dL (3.4-5.0); ALBUMIN/GLOBULIN RATIO 0.4 (1.0-1.7); CALCIUM 7.4 mg/dL (8.5-10.1); CREATININE 1.6 mg/dL (0.7-1.3); GFR 46.8; POTASSIUM 4.1 mmol/L (3.5-5.1); TOTAL BILIRUBIN 1.2 mg/dL (0.2-1.0); TOTAL PROTEIN 5.6 g/dL (6.4-8.2)
[2016-06-18] MEDS: PIPERACILLIN/TAZOBACTAM 3.375 GM in IV NORMAL SALINE 50ML 50 ML IV SCH ×5 (06:18→19:25)
--- NOTE | 2016-06-18 07:07 | PDOC ---
Infectious Disease Note Subjective Subjective Feels a little SOA. + Flatus. mild pain ROS ROS GEN: Denies fevers, chills, sweats HEENT: Denies blurred vision, sore throat CV: Denies chest pain RESP: Denies shortness of air, cough GI: Denies n/v/d NEURO: Denies confusion, dizziness MSK: Denies weakness, joint pain/swelling Vital Sign Vital Signs Vital Signs Date Time Temp Pulse Resp B/P Pulse Ox O2 Delivery O2 Flow Rate FiO2 06/18/16 06:00 110 28 109/84 100 Room Air 06/18/16 04:15 98.1 98.1 06/17/16 23:53 2.0 Physical Exam PHYSICAL EXAM GENERAL: NAD, Alert, coop HEENT: PERRL, OC/OP- clear NECK: Supple, no JVD, no LN LUNGS: Crackles HEART: S1S2, no gallop, no murmur. Mild tach ABD: Soft, NT, no organomegaly, no rebound EXT: No edema, no cyanosis. Foot dressed AUTOMOTIVE PORTER: Alert, oriented x 3, no focal neurologic deficit SKIN: No rash IV: ok Labs Lab Laboratory Tests Test 06/17/16 07:02 06/17/16 10:07 06/17/16 12:46 06/17/16 17:49 Glucose (Fingerstick) 243mg/dL (70-99) 239mg/dL (70-99) 315mg/dL (70-99) 346mg/dL (70-99) Test 06/17/16 21:32 06/18/16 04:40 Glucose (Fingerstick) 227mg/dL (70-99) White Blood Count 21.7x10^3/uL (4.0-11.0) Red Blood Count 4.91x10^6/uL (4.30-5.70) Hemoglobin 12.9g/dL (13.0-17.5) Hematocrit 40.4% (39.0-53.0) Mean Corpuscular Volume 82fL (79-100) Mean Corpuscular Hemoglobin 26pg (25-35) Mean Corpuscular Hemoglobin Concent 32g/dL (31-37) Red Cell Distribution Width 15.1% (11.5-14.5) Platelet Count 226x10^3/uL (140-400) Neutrophils (%) (Auto) 83% (31-73) Lymphocytes (%) (Auto) 9% (24-48) Monocytes (%) (Auto) 8% (0-9) Eosinophils (%) (Auto) 0% (0-3) Basophils (%) (Auto) 0% (0-3) Neutrophils # (Auto) 18.0x10^3uL (1.8-7.7) Lymphocytes # (Auto) 1.9x10^3/uL (1.0-4.8) Monocytes # (Auto) 1.7x10^3/uL (0.0-1.1) Eosinophils # (Auto) 0.0x10^3/uL (0.0-0.7) Basophils # (Auto) 0.1x10^3/uL (0.0-0.2) Erythrocyte Sedimentation Rate 59 (0-15) Sodium Level 137mmol/L (136-145) Potassium Level 4.1mmol/L (3.5-5.1) Chloride Level 102mmol/L (98-107) Carbon Dioxide Level 21mmol/L (21-32) Anion Gap 14 (6-14) Blood Urea Nitrogen 23mg/dL (8-26) Creatinine 1.6mg/dL (0.7-1.3) Estimated GFR (Cockcroft-Gault) 46.8 BUN/Creatinine Ratio 14 (6-20) Glucose Level 196mg/dL (70-99) Calcium Level 7.4mg/dL (8.5-10.1) Total Bilirubin 1.2mg/dL (0.2-1.0) Aspartate Amino Transf (AST/SGOT) 109U/L (15-37) Alanine Aminotransferase (ALT/SGPT) 45U/L (16-63) Alkaline Phosphatase 105U/L (46-116) Total Protein 5.6g/dL (6.4-8.2) Albumin 1.5g/dL (3.4-5.0) Albumin/Globulin Ratio 0.4 (1.0-1.7) Objective Assessment Sepsis - POA- GPC resembling staph 06/16 Gangrene of Left 2nd toe. Polymicrobial - including anaerobes CLARISSA - better ? Fluid on CXR left Leukocytosis - reactive H/o Group B/Ecoli Plan Plan of Care Cont Vanc and Zosyn/Micafungin. Add Zyvox to help with protein and toxic decrease wean soon F/u labs and cults CXR - repeat this am with crackles today Add BNP MARIO VALLES MD Jun 18, 2016 07:07
[2016-06-18] MEDS: INSULIN ASPART 300 UNITS/3 ML INSULN.PEN SQ SCH ×6 (08:00→17:00)
[2016-06-18] MEDS: CLOPIDOGREL BISULFATE 75 MG TABLET PO SCH (08:23)
[2016-06-18] MEDS: ASPIRIN 81 MG TAB.CHEW PO SCH (08:24)
[2016-06-18] MEDS: MICAFUNGIN 100 MG in IV DEXTROSE 5% 100 ML IV SCH (08:25)
[2016-06-18] MEDS ORDERED: ONDANSETRON PF 4 MG/2 ML VIAL. IV PRN ×2 (08:45→13:15)
--- NOTE | 2016-06-18 08:45 | RAD ---
Indication fall. Tachycardia. Fever. A single view of the chest was obtained and is compared to an examination 02/12/2015. Postoperative changes are noted. There is mild cardiomegaly appearing similar. There is some slight volume loss in the left lower lobe. This is probably chronic and has an appearance similar to an examination 02/11/2015. There is no pneumothorax. A definite acute finding in the chest is not seen. IMPRESSION: No definite acute finding apparent in the chest
--- NOTE | 2016-06-18 08:46 | RAD ---
Indication abnormal physical exam. A single view of the chest was obtained. Comparison is made to a study one day earlier. Postoperative changes are noted. Heart size is unchanged. Some minimal volume loss, likely chronic, is again seen at the left lung base. A definite acute finding in the chest is not seen. There is no significant pleural fluid and there is no pneumothorax. A significant change compared to the examination yesterday is not seen. IMPRESSION: No acute or focal process. No significant change
[2016-06-18] MEDS: VANCOMYCIN PER PHARMACY MC PRN (09:57)
--- NOTE | 2016-06-18 10:45 | PDOC ---
SUBJECTIVE Subjective He is more alert today and feeling better, I I verified DNR status was him and he definitely does not want resuscitation, DNR status will be reinforced per patient request his sister was present when he expressed his wishes, he did have loose stool this morning, his blood pressure is better but he is still on Levophed OBJECTIVE Vital Signs Vital Signs Date Time Temp Pulse Resp B/P Pulse Ox O2 Delivery O2 Flow Rate FiO2 06/18/16 06:00 110 28 109/84 100 Room Air 06/18/16 05:30 18 98 Room Air 06/18/16 05:00 104 28 106/65 99 06/18/16 04:58 20 98 Room Air 06/18/16 04:15 98.1 105 28 103/39 98 Room Air 98.1 06/18/16 04:09 Room Air 06/18/16 03:00 110 28 133/84 92 Room Air 06/18/16 02:00 118 28 122/87 94 06/18/16 00:51 116 26 112/90 98 Room Air 06/18/16 00:05 118 24 120/93 99 Room Air 06/17/16 23:53 Room Air 2.0 06/17/16 23:00 116 28 124/82 98 Nasal Cannula 2.0 06/17/16 23:00 18 99 Room Air 2.0 06/17/16 22:22 28 92 Room Air 2.0 06/17/16 22:00 120 28 145/79 100 2.0 06/17/16 21:00 98.1 114 32 110/86 95 Nasal Cannula 2.0 98.1 06/17/16 20:16 116 36 122/83 92 Room Air 06/17/16 20:13 Room Air 06/17/16 18:00 24 135/94 98 Room Air 06/17/16 17:00 116 24 113/68 100 Room Air 06/17/16 16:00 98.8 114 30 87/58 99 Room Air 98.8 06/17/16 16:00 Nasal Cannula 2.0 06/17/16 15:00 104 28 113/74 98 Room Air 06/17/16 14:00 105 30 114/85 98 Room Air 06/17/16 13:00 95 134/61 100 Nasal Cannula 2.0 06/17/16 12:00 Nasal Cannula 2.0 06/17/16 12:00 98.3 112 18 132/104 100 Nasal Cannula 2.0 98.3 06/17/16 11:00 112 26 107/69 100 Nasal Cannula 2.0 I & O Intake and Output 06/18/16 07:00 Intake Total 1450 ml Output Total 500 ml Balance 950 ml Intake Oral 450 ml IV Total 1000 ml Output Urine Total 500 ml PHYSICAL EXAM Physical Exam Lungs fairly clear Heart mildly tachycardic, his rhythm is changing between sinus and junctional, we'll check his magnesium level and ask cardiology to see him Abdomen soft and nontender Left lower extremity has dressing on no erythema ASSESSMENT/PLAN Assessment/Plan 1. Sepsis due to ulceration and gangrene of the left foot and the second toe. Status post amputation of second toe 2. Diabetes mellitus, insulin requiring, out of control due to noncompliance. Improving 3. Severe protein calorie malnutrition. 4. Renal insufficiency, acute on chronic. 5. Coronary artery disease and previous history of coronary artery bypass graft, cardiomyopathy. He is still requiring vasopressors and his rhythm is tachycardic between sinus and junctional we'll check his magnesium and ask cardiology to follow 6. Hypertension and hyperlipidemia. 7. Hyponatremia. Improving 8. Leukocytosis secondary to #1. 9. Diarrhea started today we will send his stool for guaiac Problems: COMMENT Lab Laboratory Tests Test 06/17/16 12:46 06/17/16 17:49 06/17/16 21:32 06/18/16 04:40 Glucose (Fingerstick) 315mg/dL (70-99) 346mg/dL (70-99) 227mg/dL (70-99) White Blood Count 21.7x10^3/uL (4.0-11.0) Red Blood Count 4.91x10^6/uL (4.30-5.70) Hemoglobin 12.9g/dL (13.0-17.5) Hematocrit 40.4% (39.0-53.0) Mean Corpuscular Volume 82fL (79-100) Mean Corpuscular Hemoglobin 26pg (25-35) Mean Corpuscular Hemoglobin Concent 32g/dL (31-37) Red Cell Distribution Width 15.1% (11.5-14.5) Platelet Count 226x10^3/uL (140-400) Neutrophils (%) (Auto) 83% (31-73) Lymphocytes (%) (Auto) 9% (24-48) Monocytes (%) (Auto) 8% (0-9) Eosinophils (%) (Auto) 0% (0-3) Basophils (%) (Auto) 0% (0-3) Neutrophils # (Auto) 18.0x10^3uL (1.8-7.7) Lymphocytes # (Auto) 1.9x10^3/uL (1.0-4.8) Monocytes # (Auto) 1.7x10^3/uL (0.0-1.1) Eosinophils # (Auto) 0.0x10^3/uL (0.0-0.7) Basophils # (Auto) 0.1x10^3/uL (0.0-0.2) Erythrocyte Sedimentation Rate 59 (0-15) Sodium Level 137mmol/L (136-145) Potassium Level 4.1mmol/L (3.5-5.1) Chloride Level 102mmol/L (98-107) Carbon Dioxide Level 21mmol/L (21-32) Anion Gap 14 (6-14) Blood Urea Nitrogen 23mg/dL (8-26) Creatinine 1.6mg/dL (0.7-1.3) Estimated GFR (Cockcroft-Gault) 46.8 BUN/Creatinine Ratio 14 (6-20) Glucose Level 196mg/dL (70-99) Calcium Level 7.4mg/dL (8.5-10.1) Total Bilirubin 1.2mg/dL (0.2-1.0) Aspartate Amino Transf (AST/SGOT) 109U/L (15-37) Alanine Aminotransferase (ALT/SGPT) 45U/L (16-63) Alkaline Phosphatase 105U/L (46-116) BG-Toz-E-Type Natriuretic Peptide 66132te/mL (0-124) Total Protein 5.6g/dL (6.4-8.2) Albumin 1.5g/dL (3.4-5.0) Albumin/Globulin Ratio 0.4 (1.0-1.7) Test 06/18/16 08:11 Glucose (Fingerstick) 177mg/dL (70-99) JONE SHAVER MD Jun 18, 2016 10:45
[2016-06-18] MEDS: IV NORMAL SALINE 1000ML BAG 1,000 ML IV SCH ×2 (12:39→23:25)
[2016-06-18] MEDS ORDERED: IV RINGERS,LACTATED 1000ML 1,000 ML IV SCH (13:11)
[2016-06-18] MEDS ORDERED: MORPHINE SULFATE 2 MG/ML DISP.SYRIN. IV PRN (13:15)
[2016-06-18] MEDS ORDERED: HYDROMORPHONE 2 MG/ML VIAL. IV PRN (13:15)
[2016-06-18] MEDS ORDERED: PROCHLORPERAZINE 10 MG/2 ML VIAL. IV PRN (13:15)
[2016-06-18] MEDS ORDERED: LIDOCAINE 1% 1 ML SYRINGE. ID PRN (13:15)
--- NOTE | 2016-06-18 13:21 | PDOC2 ---
EDUAR GARDUNO DYNAMICS AX SOLUTION ARCHITECT 06/18/16 1321: CARDIAC CONSULT DATE OF CONSULT Date of Consult DATE: 06/18/16 TIME: 12:43 REASON FOR CONSULT Reason for Consult: rhythm changes REFERRING PHYSICIAN Referring Physician: Dr. Christine Correa SOURCE Source: Chart review HISTORY OF PRESENT ILLNESS HISTORY OF PRESENT ILLNESS 45 year old male who underwent left great toe amputation for osteomyelitis January,. Presented to ER on 06/16/2016 with foul smelling drainage and multiple week history of left foot swelling, tightness and pain. Subsequently found to have gangrene in the left foot and 2nd toe and underwent left partial ray amputation @ 2nd ray with extensive I & D. Septic and requiring vasopressors. WBC 21. Consulted for accelerated junctional rhythm vs "flipped bundle." Patient with extensive cardiac history and depressed LV function of 16% by MUGA. Denies chest pain or dyspnea, though with productive cough. CXR earlier today without significant findings. EKG done 06/16/[address] Reason for Visit: rhythm change PAST MEDICAL HISTORY Cardiovascular: CAD (previous CABG with 3 out of 3 SVG occluded; LM and proximal LAD stents - 2014), CHF (systolic and diastolic), HTN, ND, Hyperlipidemia Musculoskeletal: Other Endocrine: Diabetes (poorly controlled with diabetic peripheral neuropathy) PAST SURGICAL HISTORY Past Surgical History: CABG, Other (right foot 2nd toe amputation; left foot great toe amputation ) FAMILY HISTORY Family History: Coronary Artery Disease, Diabetes, Hypertension SOCIAL HISTORY Smoke: No ALCOHOL: none Drugs: None Lives: with Family (sister) CURRENT MEDICATIONS CURRENT MEDICATIONS Current Medications Medications (Trade) Dose Ordered Sig/Yaneli Route PRN Reason Start Time Stop Time Status Last Admin Dose Admin Atorvastatin Calcium 40 mg 40 mg QHS PO 06/17/16 21:00 06/17/16 21:34 Vancomycin HCl/ Sodium Chloride (Iv Sodium Chloride 0.9% 250ml) 250 ml @ 250 mls/hr Q24H IV 06/17/16 23:00 06/17/16 22:26 Insulin Detemir (Levemir) 45 units QHS SQ 06/17/16 21:00 06/17/16 21:36 Insulin Aspart (Novolog) 10 units TIDAC SQ 06/18/16 07:30 06/18/16 08:21 Fentanyl Citrate 50 mcg 50 mcg PRN Q2HR PRN IV SEVERE PAIN 1/20/17 04:45 06/18/16 04:58 Sodium Chloride (Iv Sodium Chloride 0.9% 1000ml Bag) 1,000 ml @ 75 mls/hr [id number] IV 06/18/16 09:30 06/18/16 12:39 ALLERGIES ALLERGIES: Coded Allergies: No Known Drug Allergies (Unverified , 10/06/15) ROS General: YES: Fatigue, Malaise PSYCHOLOGICAL ROS: No: Anxiety, Behavioral Disorder, Concentration difficultie , Decreased libido, Depression, Disorientation, Hallucinations, Hostility, Irritablity, Memory difficulties, Mood Swings, Obsessive thoughts, Other, Physical abuse, Sexual abuse, Sleep disturbances, Suicidal ideation Eyes: No Blurry vision, No Decreased vision, No Double vision, No Dry eyes, No Excessive tearing, No Eye Pain, No Itchy Eyes, No Loss of vision, No Other, No Photophobia, No Scotomata, No Uses contacts, No Uses glasses HEENT: No: Epistaxis, Heacaches, Hearing change, Nasal congestion, Nasal discharge, Oral lesions, Other, Sinus pain, Sneezing, Snoring, Sore Throat, Tinnitus, Vertigo, Visual Changes, Vocal changes ALLERGY AND IMMUNOLOGY: No: Hives, Insect Bite Sensitivity, Itchy/Watery Eyes, Nasal Congestion, Other, Post Nasal Drip, Seasonal Allergies Hematological and Lymphatic: No: Bleeding Problems, Blood Clots, Blood Transfusions, Brusing, Night Sweats, Other, Pallor, Swollen Lymph Nodes ENDOCRINE: No: Breast Changes, Galactorrhea, Hair Pattern Changes, Hot Flashes , Malaise/lethargy, Mood Swings, Other, Palpitations, Polydipsia/polyuria, Skin Changes, Temperature Intolerance, Unexpected Weight Changes Respiratory: YES: Cough, SOB with excertion, No: Hemoptysis, Orthopnea, Other, Pleuritic Pain, Shortness of breath, Sputum Changes, Stridor, Tachypnea, Wheezing Cardiovascular: yes Edema, No Chest Pain, No Lt Headedness, No Orthopnea, No Other, No Palpitations, No Paroxysmal Noc. Dyspnea Gastrointestinal: No Abdominal Pain, No Constipation, No Diarrhea, No Hematochezia, No Melena, No Nausea, No Other, No Vomiting Genitourinary: No Discharge, No Dysuria, No Flank Pain, No Frequency, No Hematuria, No Incontinence, No Other, No Pain, No Retention, No Urgency Neurological: No Behavorial Changes, No Bowel/Bladder ControlChng, No Confusion , No Dizziness, No Gait Disturbance, No Headaches, No Impaired Coord/balance, No Memory Loss, No Numbness/Tingling, No Other, No Seizures, No Speech Problems , No Tremors, No Visual Changes, No Weakness Skin: No Acne, No Dry Skin, No Eczema, No Hair Changes, No Lumps, No Mole Changes, No Mottling, No Nail Changes, No Other, No Pruritus, No Rash, No Skin Lesion Changes PHYSICAL EXAM General: Alert, Oriented X3, Cooperative HEENT: Atraumatic, PERRLA Lungs: Clear to auscultation, Normal air movement Heart: Regular rate, Normal S1, Normal S2 Abdomen: Normal bowel sounds Extremities: No edema, Other (pulses in feet not palpable) Neuro: Normal speech Psych/Mental Status: Mental status NL, Mood NL MUSCULOSKELETAL: No deformity VITALS VITALS Vital Signs Date Time Temp Pulse Resp B/P Pulse Ox O2 Delivery O2 Flow Rate FiO2 06/18/16 08:00 Room Air 06/18/16 06:00 110 28 109/84 100 06/18/16 04:15 98.1 98.1 06/17/16 23:53 2.0 LABS Lab: Laboratory Tests Test 06/17/16 12:46 06/17/16 17:49 06/17/16 21:32 06/18/16 04:40 Glucose (Fingerstick) 315mg/dL (70-99) 346mg/dL (70-99) 227mg/dL (70-99) White Blood Count 21.7x10^3/uL (4.0-11.0) Red Blood Count 4.91x10^6/uL (4.30-5.70) Hemoglobin 12.9g/dL (13.0-17.5) Hematocrit 40.4% (39.0-53.0) Mean Corpuscular Volume 82fL (79-100) Mean Corpuscular Hemoglobin 26pg (25-35) Mean Corpuscular Hemoglobin Concent 32g/dL (31-37) Red Cell Distribution Width 15.1% (11.5-14.5) Platelet Count 226x10^3/uL (140-400) Neutrophils (%) (Auto) 83% (31-73) Lymphocytes (%) (Auto) 9% (24-48) Monocytes (%) (Auto) 8% (0-9) Eosinophils (%) (Auto) 0% (0-3) Basophils (%) (Auto) 0% (0-3) Neutrophils # (Auto) 18.0x10^3uL (1.8-7.7) Lymphocytes # (Auto) 1.9x10^3/uL (1.0-4.8) Monocytes # (Auto) 1.7x10^3/uL (0.0-1.1) Eosinophils # (Auto) 0.0x10^3/uL (0.0-0.7) Basophils # (Auto) 0.1x10^3/uL (0.0-0.2) Erythrocyte Sedimentation Rate 59 (0-15) Sodium Level 137mmol/L (136-145) Potassium Level 4.1mmol/L (3.5-5.1) Chloride Level 102mmol/L (98-107) Carbon Dioxide Level 21mmol/L (21-32) Anion Gap 14 (6-14) Blood Urea Nitrogen 23mg/dL (8-26) Creatinine 1.6mg/dL (0.7-1.3) Estimated GFR (Cockcroft-Gault) 46.8 BUN/Creatinine Ratio 14 (6-20) Glucose Level 196mg/dL (70-99) Calcium Level 7.4mg/dL (8.5-10.1) Magnesium Level 2.0mg/dL (1.8-2.4) Total Bilirubin 1.2mg/dL (0.2-1.0) Aspartate Amino Transf (AST/SGOT) 109U/L (15-37) Alanine Aminotransferase (ALT/SGPT) 45U/L (16-63) Alkaline Phosphatase 105U/L (46-116) BJ-Pim-K-Type Natriuretic Peptide 75319yt/mL (0-124) Total Protein 5.6g/dL (6.4-8.2) Albumin 1.5g/dL (3.4-5.0) Albumin/Globulin Ratio 0.4 (1.0-1.7) Test 06/18/16 08:11 06/18/16 11:26 Glucose (Fingerstick) 177mg/dL (70-99) 154mg/dL (70-99) IMAGES IMAGES CXR: single view of the chest was obtained. Comparison is made to a study one day earlier. Postoperative changes are noted. Heart size is unchanged. Some minimal volume loss, likely chronic, is again seen at the left lung base. A definite acute finding in the chest is not seen. There is no significant pleural fluid and there is no pneumothorax. A significant change compared to the examination yesterday is not seen. IMPRESSION: No acute or focal process. No significant change EKG EKG ST Repeat EKG pending ECHOCARDIOGRAM ECHOCARDIOGRAM 03/11/2016: TTE: The Left Ventricle is mildly dilated. Left ventricle ejection fraction is moderate to severely impaired. The Ejection Fraction is estimated at 30%. There is global hypokinesis of the left ventricle but most pronounced in the inferior wall. There is no significant aortic valvular stenosis. Doppler and Color Flow revealed no significant aortic regurgitation. Doppler and Color Flow revealed moderate mitral regurgitation. Doppler and Color Flow revealed mild to moderate tricuspid regurgitation. The PA pressure was estimated at 53 mmHg. STRESS TEST STRESS TEST 05/12/2015: Technique: MUGA scan was performed after intravenous administration of 21.2 mCi of tagged labeled red blood cells. Findings: Left ventricular ejection fraction is 16.1%. Impression: Severely hypokinetic left ventricle. Left ventricular ejection fraction is 16.1%. HEART CATH HEART CATH 02/04/2015: Diagnostic cath 1. Elevated left ventricular filling pressure (LVEDP 27 mm Hg) 2. Three vessel [place] coronary artery disease. 3. Presumed 3/3 vein grafts occluded. 4. Patent AGUILAR (not used for prior bypass) 5. Normal LV function. EF 55% 6. Successful closure of the RCFA with a Mynx Ty closure device. 02/06/2015: 1. Severe three vessel [place] coronary artery disease. 2. Insertion of a percutaneous heart assist device (Impella 2.5) 3. LHC with LVEDP of 16 mm Hg. 4. Acute myocardial infarction of the anterior and anterolateral reyna. 5. Acute systolic and diastolic heart failure. 6. Cardiogenic shock on vasopressor therapy. 7. Successful PCI of the LM and proximal to mid LAD with implantation of overlapping stents as follows (distal to proximal: Resolute 2.25/26, 2.25/14, 2.5/18, 2.5/14, 2.75/8) 8. Successful closure of the right and left percutaneous access sites with angioseal and perclose devices, respectively. ASSESSMENT/PLAN ASSESSMENT/PLAN 1. rhythm change initial presentation ST tele now ? junctional with retrograde P repeat EKG VS stable with rhythm off beta-blockers due to sepsis with hypotension 2. ischemic cardiomyopathy with LVEF ~ 16% by MUGA depressed LV function resume BB when possible 3. CAD with known occluded grafts and previous PCI to LM and LAD no angina continue DAPT 4. HLD LDLs = 65 on 08/2015 continue statin therapy 5. DM, IR, poorly controlled per primary service 6. left foot gangrene 2nd toe amp with I & D per ortho/ID Problems: HALI MIRANDA MD 06/19/16 0927: CARDIAC CONSULT ALLERGIES ALLERGIES: Coded Allergies: No Known Drug Allergies (Unverified , 10/06/15) ASSESSMENT/PLAN ASSESSMENT/PLAN Pt. seen and examined. Seen on 06/18/2016 Agree with above CONCIERGE RECEPTIONIST note. 45 y.o well known to me presenting with sepsis. arrhythmia secondary to sepsis. COntinue supporitve care. Will review his prior BIJAN/duplex studies, may benefit from peripheral angiogram Will follow Problems: EDUAR GARDUNO APRN Jun 18, 2016 13:21 HALI MIRANDA MD Jun 19, 2016 09:27
[2016-06-18] MEDS ORDERED: FENTANYL PF 100 MCG/2 ML VIAL. ONE (14:06)
[2016-06-18] MEDS ORDERED: PROPOFOL 20 ML IV ONE (14:06)
[2016-06-18] MEDS ORDERED: DESFLURANE 61 TO 120 MINUTES IH ONE (14:06)
[2016-06-18] MEDS ORDERED: SUCCINYLCHOLINE 200 MG/10 ML VIAL. ONE (14:07)
[2016-06-18] MEDS ORDERED: ONDANSETRON PF 4 MG/2 ML VIAL. ONE (14:07)
[2016-06-18] MEDS ORDERED: LIDOCAINE 2% 100 MG/5 ML DISP.SYRIN. ONE (14:07)
--- NOTE | 2016-06-18 16:28 | EKG ---
[facility] [address] [place] [address] Test Date: 2016-06-18 Test Time: 16:27:37 Pat Name: TAMERA MCGOWAN Department: Room: 108 1 Gender: M Recapper: MATTHEW : [id number] Requested By: EDUAR GARDUNO Order Number: [id number] Reading MD: Eboni Diehl Measurements Intervals [place] Rate: 114 P: GA: QRS: -51 QRSD: 132 T: 66 QT: 364 QTc: 506 Interpretive Statements IRREGULAR RHYTHM, NO P-WAVE FOUND VENTRICULAR PREMATURE COMPLEX(ES) ABNORMAL LEFT AXIS DEVIATION NON SPECIFIC INTRAVENTRICULAR BLOCK RVH WITH REPOLARIZATION ABNORMALITY QRS(T) CONTOUR ABNORMALITY CONSISTENT WITH INFERIOR INFARCT PROBABLY OLD ABNORMAL ECG RI6.01 Compared to ECG 06/16/2016 22:38:52 Electronically Signed On 06-20-2016 20:55:54 COUNSELOR SUPERVISOR by Eboni Diehl
[2016-06-18] MEDS ORDERED: EPHEDRINE PF IN SALINE 50 MG/5 ML DISP.SYRIN. IV ONE (20:34)
[2016-06-18] MEDS ORDERED: ROCURONIUM 50 MG/5 ML VIAL. ONE (20:49)
[2016-06-18] MEDS: INSULIN DETEMIR 300 UNITS/3 ML INSULN.PEN. SQ SCH (21:00)
[2016-06-18] MEDS: ATORVASTATIN CALCIUM 40 MG TABLET. PO SCH (21:00)
[2016-06-18] MEDS ORDERED: EPINEPHRINE 1 MG/10 ML DISP.SYRIN. ONE ×2 (21:24)
[2016-06-18] MEDS ORDERED: SODIUM BICARB ADULT 8.4% 50 MEQ/50 ML DISP.SYRIN. ONE ×2 (21:24→21:41)
--- NOTE | 2016-06-18 21:26 | PDOC ---
BRIEF OPERATIVE NOTE Date: Jun 18, 2016 Pre-Op Diagnosis left foot infection Post-Op Diagnosis same Procedure Performed irrigation debridement left foot Surgeon Marika Anesthesiologist Angelito Anesthesia Type: General Blood Loss 25cc Specimens Obtained bone, tissue discarded Findings infection devitalized tissue Complications code intraoperative with chest compressions Additional Remarks art line placed and to ICU intubated postop PRIYA SIMPSON MD Jun 18, 2016 21:26
[2016-06-18 22:05] LABS: HCO3 ABG 11 mmol/L (21-28); PCO2 ABG 35 mmHg (35-46); PO2 ABG 211 mmHg (75-108); SAT O2 ABG 99 % (92-99)
[2016-06-18 22:10] LABS: FIO2 ABG 80; PH ABG 7.12 (7.35-7.45)
[2016-06-18 22:11] LABS: BODY TEMP ABG 98.6 DEG
--- NOTE | 2016-06-18 23:11 | RAD ---
PROCEDURE AP chest radiograph. HISTORY Intubation. COMPARISON Chest radiograph earlier same day. FINDINGS Cardiac silhouette appears within normal limits for size. Endotracheal tube tip projects 3.5 centimeters above the yajaira. There has been interval placement right internal jugular central venous catheter with tip projecting at the superior vena cava. There is esophagogastric tube with tip not seen, but at least to the distal body of the stomach. No pneumothorax or pleural effusion is seen. Surgical material seen at the left lung base, compatible with previous surgical resection. There is accentuation of pulmonary vascularity, may represent pulmonary vascular congestion versus artifact of supine positioning. IMPRESSION 1. Endotracheal tube tip projects 3.5 centimeters above the yajaira. 2. Accentuation of pulmonary vascularity, may be due to supine positioning and/or pulmonary vascular congestion. Electronically signed by: Serfain Means MD (Jun 18, 2016 23:10:39)
--- NOTE | 2016-06-18 23:13 | RAD ---
PROCEDURE Abdomen radiograph. HISTORY NG tube placement. COMPARISON None. FINDINGS AP portable supine abdomen radiograph. Esophagogastric tube is present with tip projecting in right upper quadrant, either at the antrum or possibly in the 1st portion the duodenum. Bowel gas pattern is nonspecific, without evidence of obstruction. Multiple surgical clips are seen. Aortic atherosclerosis is noted. IMPRESSION 1. Nonspecific bowel gas pattern. 2. Esophagogastric tube tip projects at the gastric antrum versus 1st portion of the duodenum. Electronically signed by: Serafin Means MD (Jun 18, 2016 23:12:02)
[2016-06-18] MEDS: VANCOMYCIN 1 GM in IV NORMAL SALINE 250ML 250 ML IV SCH (23:18)
[2016-06-19] VITALS (25 sets, daily range): BP systolic 69–130; BP diastolic 46–94
[2016-06-19] MEDS: PIPERACILLIN/TAZOBACTAM 3.375 GM in IV NORMAL SALINE 50ML 50 ML IV SCH ×4 (00:39→17:28)
[2016-06-19] MEDS: PROPOFOL 100 ML IV PRN ×2 (02:17→06:54)
[2016-06-19] MEDS: VANCOMYCIN PER PHARMACY MC PRN (02:35)
[2016-06-19 04:31] LABS: BASO # 0.2 x10^3/uL (0.0-0.2); BASO % 1 % (0-3); EOS % 0 % (0-3); HEMOGLOBIN 12.4 g/dL (13.0-17.5); LYMPH # 1.2 x10^3/uL (1.0-4.8); LYMPH % 4 % (24-48); MEAN CORPUSCULAR HEMOGLOBIN 26 pg (25-35); MEAN CORPUSCULAR HGB CONC 32 g/dL (31-37); MEAN CORPUSCULAR VOLUME 82 fL (79-100); MONO % 5 % (0-9); NEUT % 90 % (31-73); PLATELET COUNT 277 x10^3/uL (140-400); RED BLOOD COUNT 4.76 x10^6/uL (4.30-5.70); RED CELL DISTRIBUTION WIDTH 15.4 % (11.5-14.5); WHITE BLOOD COUNT 29.6 x10^3/uL (4.0-11.0)
[2016-06-19 04:48] LABS: ALBUMIN 1.4 g/dL (3.4-5.0); ALBUMIN/GLOBULIN RATIO 0.3 (1.0-1.7); CALCIUM 8.3 mg/dL (8.5-10.1); CREATININE 2.3 mg/dL (0.7-1.3); GFR 30.8; POTASSIUM 4.3 mmol/L (3.5-5.1); TOTAL BILIRUBIN 1.2 mg/dL (0.2-1.0)
[2016-06-19] MEDS: INSULIN ASPART 300 UNITS/3 ML INSULN.PEN SQ SCH ×6 (07:30→16:30)
[2016-06-19] MEDS: ASPIRIN 81 MG TAB.CHEW PO SCH (07:40)
[2016-06-19] MEDS: CLOPIDOGREL BISULFATE 75 MG TABLET PO SCH (07:40)
[2016-06-19] MEDS: MICAFUNGIN 100 MG in IV DEXTROSE 5% 100 ML IV SCH (07:51)
[2016-06-19 08:08] LABS: HCO3 ABG 16 mmol/L (21-28); PCO2 ABG 29 mmHg (35-46); PH ABG 7.36 (7.35-7.45); PO2 ABG 419 mmHg (75-108); SAT O2 ABG 100 % (92-99)
[2016-06-19 08:49] LABS: FIO2 ABG 80
--- NOTE | 2016-06-19 10:18 | PDOC2 ---
Pulmonary Consultation RE: Respiratory Failure HPI: Mr Kendrick is a 45 yo male who was admitted to [facility] on 06/17/16 with complaints of left foot swelling and pain. He recently underwent amputation on his left big toe, and on presentation second toe next to the big toe blue color, gangrenous, with erythema, and very inflamed. He has been found to have Staph Aureus bacteremia - and currently followed by ID. He has been recieving Abx and supportive care. He has known underlying ICMP w/ an EF of 16%, recently seen by Cardiology for Dysrythmia's. He was taken to the OR last evening for debridement; during his procedure he became profoundly bradycardic and hypotensive. CPR was initiated, multiple doses of Epinephrine, and pressors given - He received CPR for roughly 5-7 minutes per reports, and intubated to secure the airway. previously noted to be DNR. He is seen this Am, sedated, intubated. Pressor requirement. Unable to obtain further information. Problems: Medical History PMHx: Dm, CAD, s/p CABG, Ischemic cardiomyopathy (EF 16%), HLD, HTN, GERD, Testicular CA , OA Surgical History SHx: Amputation Left Toe, Unilateral Testicticular resection, PCI x 5 cardiac stents, CABG x 3. Medications Current Medications Sodium Chloride (Iv Sodium Chloride 0.9% 1000ml Bag) 1,920 ml @ 480 mls/hr Q4H IV Last administered on 06/16/16 23:21; Start 06/16/16 at 23:00; Stop at 02:59; Status DC Vancomycin HCl (Vanco Per Pharmacy) 1 each PRN DAILY PRN [facility] PHARMACY DOSING Last administered on 06/19/16 02:35; Start 06/16/16 at 23:00 Piperacillin Sod/ Tazobactam Sod 1 each 1 each PRN DAILY PRN [facility] SEE COMMENTS; Start 06/16/16 at 23:00; Stop 06/18/16 at 09:33; Status DC Vancomycin HCl 1.5 gm/Sodium Chloride 500 ml @ 250 mls/hr 1X ONCE IV Last administered on 06/17/16 00:10; Start 06/16/16 at 23:30; Stop 06/17/16 at 01:29 ; Status DC Piperacillin Sod/ Tazobactam Sod/ Sodium Chloride (Zosyn/Iv Sodium Chloride 0.9 % 50ml) 50 ml @ 100 mls/hr Q6HRS IV Last administered on 06/19/16 05:47; Start 06/16/16 at 23:00 Ondansetron HCl (Zofran) 4 mg PRN Q8HRS PRN IV NAUSEA/VOMITING; Start 06/17/16 at 00:00; Stop 06/17/16 at 23:59; Status DC Fentanyl Citrate 50 mcg 50 mcg PRN Q2HR PRN IV SEVERE PAIN Last administered on 06/17/16 22:22; Start 06/17/16 at 00:00; Stop 06/17/16 at 23:59; Status DC Sodium Chloride (Iv Sodium Chloride 0.9% 1000ml Bag) 1,000 ml @ 150 mls/hr Q6H40M IV Last administered on 06/17/16 01:34; Start 06/17/16 at 00:00; Stop 06/17/16 at 00:01; Status DC Acetaminophen (Tylenol) 650 mg PRN Q4HRS PRN PO FEVER; Start 06/17/16 at 00:00 ; Stop 06/17/16 at 23:59; Status DC Insulin Detemir (Levemir) 20 units QHS SQ ; Start 06/17/16 at 21:00; Stop at 21:00; Status DC Insulin Aspart (Novolog) 0-9 UNITS TIDWMEALS SQ Last administered on 06/19/16 07:45; Start 06/17/16 at 08:00 Dextrose 12.5 gm PRN Q15MIN PRN IV SEE COMMENTS; Start 06/17/16 at 00:15 Aspirin (Children'S Aspirin) 81 mg DAILY PO Last administered on 06/19/16 07: 40; Start 06/17/16 at 09:00 Atorvastatin Calcium (Lipitor) 40 mg QHS PO Last administered on 06/17/16 21: 34; Start 06/17/16 at 21:00 Carvedilol (Coreg) 3.125 mg BIDWMEALS PO ; Start 06/17/16 at 08:00; Status Cancel Clopidogrel Bisulfate (Plavix) 75 mg DAILY PO Last administered on 06/19/16 07 :40; Start 06/17/16 at 09:00 Furosemide (Lasix) 40 mg DAILY PO ; Start 06/17/16 at 09:00; Stop 06/17/16 at 09 :36; Status DC Metoprolol Succinate (Toprol Xl) 25 mg DAILY PO ; Start 06/17/16 at 09:00; Stop 06/17/16 at 09:36; Status DC Insulin Aspart 10 units 10 units 1X ONCE SQ Last administered on 06/17/16 01: 37; Start 06/17/16 at 02:00; Stop 06/17/16 at 02:01; Status DC Norepinephrine Bitartrate 8 mg/ Sodium Chloride 258 ml @ 0 mls/hr CONT PRN IV SEE I/O RECORD Last administered on 06/17/16 08:44; Start 06/17/16 at 01:30 Vancomycin HCl/ Sodium Chloride (Iv Sodium Chloride 0.9% 250ml) 250 ml @ 250 mls/hr Q24H IV Last administered on 06/18/16 23:18; Start 06/17/16 at 23:00; Stop 06/19/16 at 02:10; Status DC Vancomycin HCl 1 each 1X ONCE MC Last administered on 06/18/16 22:30; Start 06/18/16 at 22:30; Stop 06/18/16 at 22:31; Status DC Ondansetron HCl 4 mg 4 mg STK-MED ONCE .ROUTE ; Start 06/17/16 at 07:18; Stop at 07:19; Status DC Propofol (Diprivan) 20 ml @ As Directed STK-MED ONCE IV ; Start 06/17/16 at 07: 18; Stop 06/17/16 at 07:19; Status DC Lidocaine HCl 100 mg 100 mg STK-MED ONCE .ROUTE ; Start 06/17/16 at 07:18; Stop 06/17/16 at 07:19; Status DC Micafungin Sodium 100 mg/Dextrose 100 ml @ 100 mls/hr Q24H IV Last administered on 06/19/16 07:51; Start 06/17/16 at 08:00 Linezolid (Zyvox Premix) 300 ml @ 300 mls/hr Q12HR IV Last administered on 07:40; Start 06/17/16 at 09:00 Phenylephrine HCl 1 mg STK-MED ONCE IV ; Start 06/17/16 at 07:35; Stop 06/17/16 at 07:36; Status DC Ephedrine Sulfate 50 mg STK-MED ONCE IV ; Start 06/17/16 at 07:40; Stop at 07:41; Status DC Insulin Detemir (Levemir) 45 units QHS SQ Last administered on 06/17/16 21:36 ; Start 06/17/16 at 21:00 Insulin Aspart (Novolog) 10 units TIDAC SQ Last administered on 06/18/16 08:21 ; Start 06/18/16 at 07:30 Fentanyl Citrate (Fentanyl 2ml Vial) 50 mcg PRN Q2HR PRN IV SEVERE PAIN Last administered on 06/18/16 04:58; Start 06/18/16 at 04:45 Ondansetron HCl 4 mg 4 mg PRN Q6HRS PRN IV NAUSEA/VOMITING; Start 06/18/16 at 08:45 Sodium Chloride (Iv Sodium Chloride 0.9% 1000ml Bag) 1,000 ml @ 75 mls/hr [id number] IV Last administered on 06/18/16 23:25; Start 06/18/16 at 09:30 Ondansetron HCl (Zofran) 4 mg PRN Q6HRS PRN IV Nausea; Start 06/18/16 at 13:15 ; Stop 06/19/16 at 13:14 Morphine Sulfate 1 mg 1 mg PRN Q10MIN PRN IV SEVERE PAIN; Start 06/18/16 at 13: 15; Stop 06/19/16 at 13:14 Lactated Ringer's (Iv Lactated Ringers) 1,000 ml @ 0 mls/hr Q0M IV ; Start at 13:11; Stop 06/19/16 at 01:10; Status DC Lidocaine HCl 2 ml 1X PRN PRN ID IV START; Start 06/18/16 at 13:15; Stop at 13:14 Hydromorphone HCl (Dilaudid) 0.5 mg PRN Q10MIN PRN IV SEV PAIN,Second choice Last administered on 06/19/16 04:03; Start 06/18/16 at 13:15; Stop 06/19/16 at 13:14 Prochlorperazine Edisylate (Compazine) 5 mg PACU PRN PRN IV NAUSEA; Start 06/18 at 13:15; Stop 06/19/16 at 13:14 Desflurane (Suprane) 60 ml STK-MED ONCE IH ; Start 06/18/16 at 14:06; Stop 06/18 at 14:07; Status DC Fentanyl Citrate 100 mcg 100 mcg STK-MED ONCE .ROUTE ; Start 06/18/16 at 14:06; Stop 06/18/16 at 14:07; Status DC Propofol (Diprivan) 20 ml @ As Directed STK-MED ONCE IV ; Start 06/18/16 at 14: 06; Stop 06/18/16 at 14:07; Status DC Ondansetron HCl (Zofran) 4 mg STK-MED ONCE .ROUTE ; Start 06/18/16 at 14:07; Stop 06/18/16 at 14:08; Status DC Lidocaine HCl 100 mg STK-MED ONCE .ROUTE ; Start 06/18/16 at 14:07; Stop at 14:08; Status DC Succinylcholine Chloride (Anectine) 200 mg STK-MED ONCE .ROUTE ; Start 06/18/16 at 14:07; Stop 06/18/16 at 14:08; Status DC Ephedrine Sulfate 50 mg STK-MED ONCE IV ; Start 06/18/16 at 20:34; Stop at 20:35; Status DC Rocuronium Concord (Zemuron) 50 mg STK-MED ONCE .ROUTE ; Start 06/18/16 at 20:49 ; Stop 06/18/16 at 20:50; Status DC Sodium Bicarbonate 50 meq STK-MED ONCE .ROUTE ; Start 06/18/16 at 21:24; Stop at 21:25; Status DC Epinephrine HCl 1 mg STK-MED ONCE .ROUTE ; Start 06/18/16 at 21:24; Stop at 21:25; Status DC Epinephrine HCl 1 mg STK-MED ONCE .ROUTE ; Start 06/18/16 at 21:24; Stop at 21:25; Status DC Sodium Bicarbonate 50 meq 50 meq STK-MED ONCE .ROUTE ; Start 06/18/16 at 21:41; Stop 06/18/16 at 21:42; Status DC Propofol 100 ml @ 0 mls/hr CONT PRN IV SEE I/O RECORD Last administered on 06/19t 06:54; Start 06/18/16 at 22:00 Vancomycin HCl/ Sodium Chloride (Iv Sodium Chloride 0.9% 250ml) 250 ml @ 250 mls/hr Q12H IV ; Start 06/19/16 at 11:00 Vancomycin HCl 1 each 1X ONCE MC ; Start 06/20/16 at 22:30; Stop 06/20/16 at 22 :31 Active Scripts Active Lasix (Furosemide) 40 Mg Tablet 40 Mg PO DAILY Coreg (Carvedilol) 3.125 Mg Tablet 3.125 Mg PO BIDWMEALS Lipitor (Atorvastatin Calcium) 40 Mg Tablet 40 Mg PO QHS Reported Metoprolol Succinate ( Xl ) (Metoprolol Succinate) 25 Mg Tab.er.24h 25 Mg PO DAILY Clopidogrel (Clopidogrel Bisulfate) 75 Mg Tablet 75 Mg PO DAILY Brilinta (Ticagrelor) 90 Mg Tablet 90 Mg PO DAILY Levemir (Insulin Detemir) 100 Unit/1 Ml Vial 44 Unit SQ HS Aspirin 81 Mg Tab.chew 81 Mg PO DAILY Allergies Allergies Coded Allergies Type Severity Reaction Last Updated Verified No Known Drug Allergies 10/06/15 No Social History No none alcohol, recreational drugs, nor ETOH Family History Dm, HTN System Review Unable to obtain secondary to current clinical conditon Vital Signs Vital Signs Date Time Temp Pulse Resp B/P Pulse Ox O2 Delivery O2 Flow Rate FiO2 06/19/16 07:00 88 14 130/90 100 Ventilator 06/19/16 04:00 99.7 99.7 06/17/16 23:53 2.0 Last Labs Laboratory Tests Test 06/18/16 11:26 06/18/16 15:52 06/18/16 21:26 06/18/16 22:25 Glucose (Fingerstick) 154mg/dL (70-99) 136mg/dL (70-99) O2 Saturation 99% (92-99) Arterial Blood pH 7.12 (7.35-7.45) Arterial Blood pCO2 at Patient Temp 35mmHg (35-46) Arterial Blood pO2 at Patient Temp 211mmHg (75-108) Arterial Blood HCO3 11mmol/L (21-28) Arterial Blood Base Excess -17mmol/L (-3-3) FiO2 80 Vancomycin Level Trough 8.0mcg/mL (10.0-20.0) Vancomycin Last Dose Date 06/17/16 Vancomycin Last Dose Time 2300 Test 06/18/16 22:34 06/19/16 04:10 06/19/16 05:40 06/19/16 07:43 Glucose (Fingerstick) 134mg/dL (70-99) 198mg/dL (70-99) 229mg/dL (70-99) White Blood Count 29.6x10^3/uL (4.0-11.0) Red Blood Count 4.76x10^6/uL (4.30-5.70) Hemoglobin 12.4g/dL (13.0-17.5) Hematocrit 39.0% (39.0-53.0) Mean Corpuscular Volume 82fL (79-100) Mean Corpuscular Hemoglobin 26pg (25-35) Mean Corpuscular Hemoglobin Concent 32g/dL (31-37) Red Cell Distribution Width 15.4% (11.5-14.5) Platelet Count 277x10^3/uL (140-400) Neutrophils (%) (Auto) 90% (31-73) Lymphocytes (%) (Auto) 4% (24-48) Monocytes (%) (Auto) 5% (0-9) Eosinophils (%) (Auto) 0% (0-3) Basophils (%) (Auto) 1% (0-3) Neutrophils # (Auto) 26.7x10^3uL (1.8-7.7) Lymphocytes # (Auto) 1.2x10^3/uL (1.0-4.8) Monocytes # (Auto) 1.5x10^3/uL (0.0-1.1) Eosinophils # (Auto) 0.0x10^3/uL (0.0-0.7) Basophils # (Auto) 0.2x10^3/uL (0.0-0.2) Sodium Level 135mmol/L (136-145) Potassium Level 4.3mmol/L (3.5-5.1) Chloride Level 102mmol/L (98-107) Carbon Dioxide Level 16mmol/L (21-32) Anion Gap 17 (6-14) Blood Urea Nitrogen 32mg/dL (8-26) Creatinine 2.3mg/dL (0.7-1.3) Estimated GFR (Cockcroft-Gault) 30.8 BUN/Creatinine Ratio 14 (6-20) Glucose Level 244mg/dL (70-99) Calcium Level 8.3mg/dL (8.5-10.1) Total Bilirubin 1.2mg/dL (0.2-1.0) Aspartate Amino Transf (AST/SGOT) 426U/L (15-37) Alanine Aminotransferase (ALT/SGPT) 158U/L (16-63) Alkaline Phosphatase 139U/L (46-116) Total Protein 7.0g/dL (6.4-8.2) Albumin 1.4g/dL (3.4-5.0) Albumin/Globulin Ratio 0.3 (1.0-1.7) Exam Comments Constitutional: Well developed, well nourished, no acute distress, non-toxic appearance. HENT: Normocephalic, atraumatic, bilateral external ears normal, oropharynx moist, no oral exudates, nose normal. Eyes: conjunctiva normal, no discharge. Neck: Normal range of motion, no tenderness, supple, no stridor. Cardiovascular:Heart rate regular rhythm, no murmur Lungs & Thorax: Bilateral breath sounds clear to auscultation Abdomen: Bowel sounds normal, soft, no tenderness, no masses, no pulsatile masses. Skin: Warm, dry, no erythema, no rash. Back: No tenderness, no CVA tenderness. Extremities: No tenderness, no cyanosis, no clubbing, no edema. Neurologic: No response to painful stimuli, overbreathing ventilatory support. Psychologic: Unable to be obtained. Chest X-rays 06/18/16: CXR: IMPRESSION 1. Endotracheal tube tip projects 3.5 centimeters above the yajaira. 2. Accentuation of pulmonary vascularity, may be due to supine positioning and/or pulmonary vascular congestion. Assessment Bradycardia/Hypotension Ischemic Cardiomyopathy Acute on Chronic Systolic/Diastolic Heart Failure Severe Sepsis/Sepsis Staph Aureus Bacteremia Acute Respiratory Failure Secondary to above Gangrene of Left Toe s/p resection DM Severe PCM CLARISSA on CKD CAD s/p CABG Leukocytosis Amemia - NOS HTN, HLD Plan - Continue Supportive Measures - Mechanical Ventilation: - Discuss with Family - prior DNR, and will wean as tolerated vs extubate per family wishes. Acknowledging prior code status request. - Propofol gtt for sedation - Currently not withdrawing to painful stimuli - Continue pressor support as needed. - Follow GenSurg recommendations - Abx per ID - Currently NPO - pending family decision and weaning tolerance - will consider OG for enteral feeds - IVF - Monitor UOP and Function - DVT ppx - Further Recommendations per Primary cc time : 45min ANTONIO HOLLEY MD Jun 19, 2016 10:18
[2016-06-19] MEDS: VANCOMYCIN 1 GM in IV NORMAL SALINE 250ML 250 ML IV SCH ×2 (10:31→23:10)
[2016-06-19] MEDS: IV NORMAL SALINE 1000ML BAG 1,000 ML IV SCH (11:17)
--- NOTE | 2016-06-19 13:30 | OP ---
DATE OF SURGERY: 06/18/2016 PREOPERATIVE DIAGNOSIS: Left foot infection. POSTOPERATIVE DIAGNOSIS: Left foot infection. HISTORY: The patient underwent a previous irrigation debridement of a left foot infection about a day and a half ago and continues to be quite sick and nauseous. He has been undergoing dressing changes and intravenous antibiotics, but on examining his foot today, I noted that he has significant additional devitalized tissue even from the debridement previously and due to his ongoing clinical picture as well as appearance of the foot recommended repeat irrigation and debridement. I did review with the patient and his family the risks, benefits, postoperative course including the possibility of really loss of his foot, but the reason for this is to prevent proximal spread of infection and causing further other problems. All his questions were answered. He agrees to proceed with operative evaluation and treatment. DESCRIPTION OF PROCEDURE: The patient was identified, procedure verified, patient placed in the supine position on the operating table. After adequate amounts of general LMA anesthesia were administered, the left lower extremity was prepped and draped in standard sterile fashion and after timeout was performed, the patient procedure identified and verified. Sharp debridement was carried out of the left foot including skin, subcutaneous tissue, fascia, muscle and bone. The second metatarsal was cut back further as with additional significant debridement, it really had no coverage in the wound. Cultures were previously obtained and the tissue sharply debrided was discarded at this time. Irrigation was carried out with normal saline solution and in the middle of the procedure, he was noted to be hypotensive and unresponsive to pressors and a code was called. He was given chest compressions probably for about 5-6 minutes overall. Pulse was returned at that point and he did respond. Anesthesia placed in arterial line. I briefly since the debridement was completed, proceeded with further irrigation and area was packed with iodoform gauze and dressed. He was returned to recovery room in very guarded condition. I did inform the family about intraoperative events of the code being called and the fact that measures are taken despite be in our status to resuscitate him in the operating room, no matter what, and later decision would be made based on his ongoing status in terms of breathing to being continued, but it was agreed at this point at least until that he would probably be sedated for the next several hours and another reevaluation in terms of the breathing tube etc. would be conducted in the morning. I did discuss this with his admitting physician, Dr. Gambino postoperatively as well. Family was in complete agreement with that strategy at this point. PRIYA SIMPSON MD DR: FREDI/mingo JOB#: [id number] / [id number]
--- NOTE | 2016-06-19 13:46 | PDOC ---
Provider Note Provider Note for dr huertas, labs noted, on vent now- is dnr- cont same MONIKA PARKER MD Jun 19, 2016 13:46
--- NOTE | 2016-06-19 14:33 | PDOC ---
PROGRESS NOTES Subjective Subjective Problems overnight:intubated, opens eyes, not weaning from vent yet Objective Vital Signs Vital Signs Date Time Temp Pulse Resp B/P Pulse Ox O2 Delivery O2 Flow Rate FiO2 06/19/16 14:00 83 14 130/82 100 Ventilator 06/19/16 12:00 97.9 97.9 06/17/16 23:53 2.0 Physical Exam foot dressing intact Labs Laboratory Tests Test 06/17/16 17:49 06/17/16 21:32 06/18/16 04:40 06/18/16 08:11 Glucose (Fingerstick) 346mg/dL (70-99) 227mg/dL (70-99) 177mg/dL (70-99) White Blood Count 21.7x10^3/uL (4.0-11.0) Red Blood Count 4.91x10^6/uL (4.30-5.70) Hemoglobin 12.9g/dL (13.0-17.5) Hematocrit 40.4% (39.0-53.0) Mean Corpuscular Volume 82fL (79-100) Mean Corpuscular Hemoglobin 26pg (25-35) Mean Corpuscular Hemoglobin Concent 32g/dL (31-37) Red Cell Distribution Width 15.1% (11.5-14.5) Platelet Count 226x10^3/uL (140-400) Neutrophils (%) (Auto) 83% (31-73) Lymphocytes (%) (Auto) 9% (24-48) Monocytes (%) (Auto) 8% (0-9) Eosinophils (%) (Auto) 0% (0-3) Basophils (%) (Auto) 0% (0-3) Neutrophils # (Auto) 18.0x10^3uL (1.8-7.7) Lymphocytes # (Auto) 1.9x10^3/uL (1.0-4.8) Monocytes # (Auto) 1.7x10^3/uL (0.0-1.1) Eosinophils # (Auto) 0.0x10^3/uL (0.0-0.7) Basophils # (Auto) 0.1x10^3/uL (0.0-0.2) Erythrocyte Sedimentation Rate 59 (0-15) Sodium Level 137mmol/L (136-145) Potassium Level 4.1mmol/L (3.5-5.1) Chloride Level 102mmol/L (98-107) Carbon Dioxide Level 21mmol/L (21-32) Anion Gap 14 (6-14) Blood Urea Nitrogen 23mg/dL (8-26) Creatinine 1.6mg/dL (0.7-1.3) Estimated GFR (Cockcroft-Gault) 46.8 BUN/Creatinine Ratio 14 (6-20) Glucose Level 196mg/dL (70-99) Calcium Level 7.4mg/dL (8.5-10.1) Magnesium Level 2.0mg/dL (1.8-2.4) Total Bilirubin 1.2mg/dL (0.2-1.0) Aspartate Amino Transf (AST/SGOT) 109U/L (15-37) Alanine Aminotransferase (ALT/SGPT) 45U/L (16-63) Alkaline Phosphatase 105U/L (46-116) MY-Tgx-O-Type Natriuretic Peptide 63919pb/mL (0-124) Total Protein 5.6g/dL (6.4-8.2) Albumin 1.5g/dL (3.4-5.0) Albumin/Globulin Ratio 0.4 (1.0-1.7) Test 06/18/16 11:26 06/18/16 15:52 06/18/16 21:26 06/18/16 22:25 Glucose (Fingerstick) 154mg/dL (70-99) 136mg/dL (70-99) O2 Saturation 99% (92-99) 100% (92-99) Arterial Blood pH 7.12 (7.35-7.45) 7.36 (7.35-7.45) Arterial Blood pCO2 at Patient Temp 35mmHg (35-46) 29mmHg (35-46) Arterial Blood pO2 at Patient Temp 211mmHg (75-108) 419mmHg (75-108) Arterial Blood HCO3 11mmol/L (21-28) 16mmol/L (21-28) Arterial Blood Base Excess -17mmol/L (-3-3) -8mmol/L (-3-3) FiO2 80 80 Vancomycin Level Trough 8.0mcg/mL (10.0-20.0) Vancomycin Last Dose Date 06/17/16 Vancomycin Last Dose Time 2300 Test 06/18/16 22:34 06/19/16 04:10 06/19/16 05:40 06/19/16 07:43 Glucose (Fingerstick) 134mg/dL (70-99) 198mg/dL (70-99) 229mg/dL (70-99) White Blood Count 29.6x10^3/uL (4.0-11.0) Red Blood Count 4.76x10^6/uL (4.30-5.70) Hemoglobin 12.4g/dL (13.0-17.5) Hematocrit 39.0% (39.0-53.0) Mean Corpuscular Volume 82fL (79-100) Mean Corpuscular Hemoglobin 26pg (25-35) Mean Corpuscular Hemoglobin Concent 32g/dL (31-37) Red Cell Distribution Width 15.4% (11.5-14.5) Platelet Count 277x10^3/uL (140-400) Neutrophils (%) (Auto) 90% (31-73) Lymphocytes (%) (Auto) 4% (24-48) Monocytes (%) (Auto) 5% (0-9) Eosinophils (%) (Auto) 0% (0-3) Basophils (%) (Auto) 1% (0-3) Neutrophils # (Auto) 26.7x10^3uL (1.8-7.7) Lymphocytes # (Auto) 1.2x10^3/uL (1.0-4.8) Monocytes # (Auto) 1.5x10^3/uL (0.0-1.1) Eosinophils # (Auto) 0.0x10^3/uL (0.0-0.7) Basophils # (Auto) 0.2x10^3/uL (0.0-0.2) Sodium Level 135mmol/L (136-145) Potassium Level 4.3mmol/L (3.5-5.1) Chloride Level 102mmol/L (98-107) Carbon Dioxide Level 16mmol/L (21-32) Anion Gap 17 (6-14) Blood Urea Nitrogen 32mg/dL (8-26) Creatinine 2.3mg/dL (0.7-1.3) Estimated GFR (Cockcroft-Gault) 30.8 BUN/Creatinine Ratio 14 (6-20) Glucose Level 244mg/dL (70-99) Calcium Level 8.3mg/dL (8.5-10.1) Total Bilirubin 1.2mg/dL (0.2-1.0) Aspartate Amino Transf (AST/SGOT) 426U/L (15-37) Alanine Aminotransferase (ALT/SGPT) 158U/L (16-63) Alkaline Phosphatase 139U/L (46-116) Total Protein 7.0g/dL (6.4-8.2) Albumin 1.4g/dL (3.4-5.0) Albumin/Globulin Ratio 0.3 (1.0-1.7) Test 06/19/16 11:20 Glucose (Fingerstick) 240mg/dL (70-99) Laboratory Tests Test 06/18/16 15:52 06/18/16 21:26 06/18/16 22:25 06/18/16 22:34 Glucose (Fingerstick) 136mg/dL (70-99) 134mg/dL (70-99) O2 Saturation 99% (92-99) 100% (92-99) Arterial Blood pH 7.12 (7.35-7.45) 7.36 (7.35-7.45) Arterial Blood pCO2 at Patient Temp 35mmHg (35-46) 29mmHg (35-46) Arterial Blood pO2 at Patient Temp 211mmHg (75-108) 419mmHg (75-108) Arterial Blood HCO3 11mmol/L (21-28) 16mmol/L (21-28) Arterial Blood Base Excess -17mmol/L (-3-3) -8mmol/L (-3-3) FiO2 80 80 Vancomycin Level Trough 8.0mcg/mL (10.0-20.0) Vancomycin Last Dose Date 06/17/16 Vancomycin Last Dose Time 2300 Test 06/19/16 04:10 06/19/16 05:40 06/19/16 07:43 06/19/16 11:20 White Blood Count 29.6x10^3/uL (4.0-11.0) Red Blood Count 4.76x10^6/uL (4.30-5.70) Hemoglobin 12.4g/dL (13.0-17.5) Hematocrit 39.0% (39.0-53.0) Mean Corpuscular Volume 82fL (79-100) Mean Corpuscular Hemoglobin 26pg (25-35) Mean Corpuscular Hemoglobin Concent 32g/dL (31-37) Red Cell Distribution Width 15.4% (11.5-14.5) Platelet Count 277x10^3/uL (140-400) Neutrophils (%) (Auto) 90% (31-73) Lymphocytes (%) (Auto) 4% (24-48) Monocytes (%) (Auto) 5% (0-9) Eosinophils (%) (Auto) 0% (0-3) Basophils (%) (Auto) 1% (0-3) Neutrophils # (Auto) 26.7x10^3uL (1.8-7.7) Lymphocytes # (Auto) 1.2x10^3/uL (1.0-4.8) Monocytes # (Auto) 1.5x10^3/uL (0.0-1.1) Eosinophils # (Auto) 0.0x10^3/uL (0.0-0.7) Basophils # (Auto) 0.2x10^3/uL (0.0-0.2) Sodium Level 135mmol/L (136-145) Potassium Level 4.3mmol/L (3.5-5.1) Chloride Level 102mmol/L (98-107) Carbon Dioxide Level 16mmol/L (21-32) Anion Gap 17 (6-14) Blood Urea Nitrogen 32mg/dL (8-26) Creatinine 2.3mg/dL (0.7-1.3) Estimated GFR (Cockcroft-Gault) 30.8 BUN/Creatinine Ratio 14 (6-20) Glucose Level 244mg/dL (70-99) Calcium Level 8.3mg/dL (8.5-10.1) Total Bilirubin 1.2mg/dL (0.2-1.0) Aspartate Amino Transf (AST/SGOT) 426U/L (15-37) Alanine Aminotransferase (ALT/SGPT) 158U/L (16-63) Alkaline Phosphatase 139U/L (46-116) Total Protein 7.0g/dL (6.4-8.2) Albumin 1.4g/dL (3.4-5.0) Albumin/Globulin Ratio 0.3 (1.0-1.7) Glucose (Fingerstick) 198mg/dL (70-99) 229mg/dL (70-99) 240mg/dL (70-99) Assessment Assessment POD# [], S/P [multiple i/d left foot infection] Problems: Plan Plan of Care local wound care with daily packing changes medical supportive care PRIYA SIMPSON MD Jun 19, 2016 14:33
[2016-06-19] MEDS ORDERED: SCOPOLAMINE 1.5MG PATCH. TD SCH (18:36)
[2016-06-19] MEDS: LORAZEPAM 2 MG/ML VIAL IV PRN ×2 (18:40→20:44)
[2016-06-19] MEDS: MORPHINE SULFATE 4 MG/ML DISP.SYRIN. IV PRN ×2 (18:41→20:45)
[2016-06-19] MEDS: ATORVASTATIN CALCIUM 40 MG TABLET. PO SCH (21:00)
[2016-06-19] MEDS: INSULIN DETEMIR 300 UNITS/3 ML INSULN.PEN. SQ SCH (21:00)
[2016-06-20] VITALS: BP 77/55
[2016-06-20 01:00] VITALS: BP 66/47
[2016-06-20 02:00] VITALS: BP 43/37
[2016-06-20] MEDS: LORAZEPAM 2 MG/ML VIAL IV PRN (02:29)
[2016-06-20] MEDS: MORPHINE SULFATE 4 MG/ML DISP.SYRIN. IV PRN (02:30)
--- NOTE | 2016-06-21 15:53 | PATHOLOGY ---
PATHOLOGY REPORT * * * * * * * * FINAL DIAGNOSIS: Left second toe amputation: - Ischemic necrosis of skin with extensive acute cellulitis and acute osteomyelitis. (JPM:all; d/t: 06/21/2016) REPORT ELECTRONICALLY SIGNED BY: Donato Cruz M.D. DATE/TIME: 06/21/2016 15:52 * * * * * * * * GROSS PATHOLOGY: The specimen is received in formalin labeled "Jose Mcgowan left second toe". Received is an amputated digit measuring 4.6 x 2.8 x 2.6 cm in greatest dimensions. The bone margin is jagged in appearance. The nail is present displaying a pale astorga as well as thickened appearance measuring 1.6 x 0.8 x 0.37 m. There is a large amount of skin slippage present exposing underlying granular dark brown apparent dermis. A full-thickness longitudinal cross-section, divided into proximal and distal aspects, in cassettes A1 and A2, following decalcification. (CAA; 06/18/2016) INITIAL CPT CODE(S): A; 71895, 69166 Professional services [place] [facility] [place] [address] Technical services performed by [facility] at [address] [place] [address], [address], [place] [address]. SPECIMEN(S) RECEIVED: A.Left 2nd toe CLINICAL HISTORY: DM PATIENT: JOSE MCGOWAN /AGE: 7 1970 (Age: 45) PATIENT #: [id number] ALT CASE #: SPECIMEN COLLECTION DATE: 06/16/2016 SPECIMEN RECEIVED DATE: 06/17/2016 [facility] - [address] [place] [address] - PHONE: [phone] * * * END OF REPORT * * *
== END 2016-06-20 02:41 | disposition expired | DRG 853 ==
LOC: ER 21:31 → 1 WEST ICU 23:38
PROVIDERS: ADMIT Internal Medicine; ATTEND Internal Medicine
PROC: 0Y6S0Z0 Detachment at Left 2nd Toe, Complete, Open Approach (ICD-10-PCS; principal; 2016-06-17 07:30)
PROC: 5A1935Z Respiratory Ventilation, Less than 24 Consecutive Hours (ICD-10-PCS; 2016-06-18)
PROC: 0BH17EZ Insertion of Endotracheal Airway into Trachea, Via Natural or Artificial Opening (ICD-10-PCS; 2016-06-18)
PROC: 0QBP0ZZ Excision of Left Metatarsal, Open Approach (ICD-10-PCS; 2016-06-19)
DX: A41.9 Sepsis, unspecified organism (principal); E43 Unspecified severe protein-calorie malnutrition; I50.43 Acute on chronic combined systolic (congestive) and diastolic (congestive) heart failure; J96.00 Acute respiratory failure, unspecified whether with hypoxia or hypercapnia; E87.1 Hypo-osmolality and hyponatremia; E87.2 Acidosis; I13.0 Hypertensive heart and chronic kidney disease with heart failure and stage 1 through stage 4 chronic kidney disease, or unspecified chronic kidney disease; N17.9 Acute kidney failure, unspecified; E11.52 Type 2 diabetes mellitus with diabetic peripheral angiopathy with gangrene; M86.9 Osteomyelitis, unspecified; Z66 Do not resuscitate; E11.22 Type 2 diabetes mellitus with diabetic chronic kidney disease; E11.42 Type 2 diabetes mellitus with diabetic polyneuropathy; E11.65 Type 2 diabetes mellitus with hyperglycemia; E78.00 Pure hypercholesterolemia, unspecified; E11.69 Type 2 diabetes mellitus with other specified complication; E78.5 Hyperlipidemia, unspecified; I25.10 Atherosclerotic heart disease of native coronary artery without angina pectoris; I25.5 Ischemic cardiomyopathy; K21.9 Gastro-esophageal reflux disease without esophagitis; I34.0 Nonrheumatic mitral (valve) insufficiency; M19.90 Unspecified osteoarthritis, unspecified site; N18.9 Chronic kidney disease, unspecified; R57.0 Cardiogenic shock; R65.20 Severe sepsis without septic shock; Z79.4 Long term (current) use of insulin; Z82.49 Family history of ischemic heart disease and other diseases of the circulatory system; I25.2 Old myocardial infarction; Z83.3 Family history of diabetes mellitus; Z85.47 Personal history of malignant neoplasm of testis; Z87.440 Personal history of urinary (tract) infections; Z89.412 Acquired absence of left great toe; Z91.19 Patient's noncompliance with other medical treatment and regimen; Z95.1 Presence of aortocoronary bypass graft; Z95.5 Presence of coronary angioplasty implant and graft; Z68.29 Body mass index [BMI] 29.0-29.9, adult
CPT/HCPCS: 36415; 36600; 71010; 73630; 74000; 80048; 80053; 80202; 82550; 82805; 82947; 83605; 83735; 83880; 84145; 85007; 85027; 85610; 85651; 85730; 87040; 87071; 87075; 87205; 87641; 88305; 88311; 93005; 94002; 94003; 94640; 96360; J0171; J0330; J1170; J1815; J2020; J2060; J2248; J2270; J2370; J2405; J2543; J2704; J3010; J3370; J7030; J7040; J7050; 99285-25